=== PATIENT | female | born 1945 | race Asian ===

== ENCOUNTER 2016-12-13 17:16 | Inpatient (IN) | payer OTHER ==
[2016-12-13] VITALS (11 sets, daily range): BP systolic 69–169; BP diastolic 45–84; PULSE 59–143; RESP 18–28; TEMP 98.5–101.5; O2SAT 87–98
[~2016-12-13] VITALS: Ht 152.4 cm; Wt 68.0 kg
[~2016-12-13 17:16] MED LIST: DIGO0.12 PO; ENOX60P SQ; HYDR12.56 PO; METO25 PO; PROT40TA PO; WARF2TAB PO
--- NOTE | 2016-12-13 17:38 | PD ---
HPI . coughing,fever, chills Chief Complaint: Cold / Flu Symptoms Time Seen by Provider: 17:38 Travel History International Travel<30 days: No Contact w/Intl Traveler<30days: No Traveled to known affect area: No History of Present Illness HPI 71-year-old [place] female with history of A. fib on warfarin, history of mitral valve replacement, pacemaker here with complaints of coughing, fever and chills. Patient was seen last Sunday in [place] and started on Tamiflu for influenza. She was around someone who was infected. She has been taking the medications and has continued to experience fever, chills and coughing. Patient is a very poor historian and her son has provided most of the information. He says he brought his mom in because she is not getting better. She is continuing to experience fever and chills. This is what prompted him to come to the ED. While examining the patient, she started having bouts of coughing and was hacking up blood tinged sputum. Her vital signs were abnormal , her temperature was 101.1. She was hypoxic with in O2 sat of 89%, and tachycardic. She was given 2 L via nasal cannula and is now satting at 96%. PFSH Past Medical History Hx Anticoagulant Therapy: Yes Cardiovascular Problems: Yes High Cholesterol: Yes Hypertension: Yes Tetanus Vaccination: Unknown Past Surgical History Cardiac Surgery: Yes (PACEMAKER AUG 2014; MITRAL VALVE REPLACEMENT) Social History Alcohol Use: No Tobacco Use: No Substance Use: No Allergies-Medications (Allergen,Severity, Reaction): Coded Allergies: Penicillin (Unverified Allergy, Severe, Rash, 12/13/16) Reported Meds & Prescriptions Reported Meds & Active Scripts Active Reported Warfarin 4 Mg Tab 4 Mg PO MOFR @ HS Warfarin 2 Mg Tab 2 Mg PO SUTUWETHSA @[facility] Hydrochlorothiazide 12.5 Mg Tab 12.5 Mg PO DAILY Metoprolol Tartrate 25 Mg Tab 25 Mg PO BID Digoxin 0.125 Mg Tab 0.125 Mg PO DAILY Tamiflu (Oseltamivir Phosphate) 75 Mg Cap 75 Mg PO BID Review of Systems General / Constitutional: Positive: Fever, Chills Eyes: No: Visual changes HENT: No: Headaches Cardiovascular: No: Chest Pain or Discomfort Respiratory: Positive: Cough, Shortness of Breath Gastrointestinal: No: Abdominal Pain Genitourinary: No: Dysuria Musculoskeletal: No: Pain Skin: No Rash Neurologic: No: Weakness Psychiatric: No: Depression Endocrine: No: Polydipsia Hematologic/Lymphatic: No: Easy Bruising Physical Exam Narrative GENERAL: AAO x 3, on nasal cannula, has some difficulty breathing, SKIN: Warm and dry. No visible rashes or bruising. HEAD: Normocephalic and atraumatic. EYES: No scleral icterus. No injection or drainage. ENT: No nasal drainage noted. Mucous membranes pink. Airway patent. NECK: Supple, trachea midline. No JVD. CARDIOVASCULAR: A. fib RVR on auscultation heart rate approximately 136, monitor fluctuating between 112 and 144, 3/6 murmur on auscultation, 6/6 systolic click (heart valve) RESPIRATORY: Breath sounds significantly diminished bilaterally. Rhonchi and Rales scattered bilaterally GASTROINTESTINAL: Abdomen soft, non-tender, nondistended. EXTREMITIES: No cyanosis. Bilateral lower extremities with trace edema BACK: Nontender without obvious deformity. No CVA tenderness. PSYCH: AAO x 3, normal affect. Data Data Last Documented VS Vital Signs Date Time Temp Pulse Resp B/P Pulse Ox O2 Delivery O2 Flow Rate FiO2 12/13/16 18:10 92 Nasal Cannula 2 12/13/16 17:25 101.1 123 24 169/84 Orders Electrocardiogram (12/13/16 17:32) Complete Blood Count With Diff (12/13/16:32) Comprehensive Metabolic Panel (12/13/16 17:32) Prothrombin Time / Inr (Pt) (12/13/16:32) Act Partial Throm Time (Ptt) (12/13/16:32) Lactic Acid Sepsis Protocol (12/13/16:32) Magnesium (Mg) (12/13/16:32) Phosphorus (Po4) (12/13/16 17:32) Lipase (12/13/16:32) Ckmb (Isoenzyme) Profile (12/13/16:32) Troponin I (12/13/16:32) Urinalysis - C+S If Indicated (12/13/16:32) Blood Culture (12/13/16:32) Blood Glucose (12/13/16:32) Ecg Monitoring (12/13/16:32) Iv Access Insert/Monitor (3/15/17 17:32) Oximetry (12/13/16 17:32) Oxygen Administration (12/13/16 17:32) Diltiazem Inj (Cardizem Inj) (12/13/16 18:00) Chest, Single Ap (12/13/16 ) Digoxin (12/13/16 17:57) Acetaminophen (Tylenol) (12/13/16 18:00) Vancomycin Inj (Vancomycin Inj) (12/13/16 18:00) Aztreonam Inj (Azactam Inj) (12/13/16 18:00) Arterial Blood Gas (Abg) (12/13/16 ) Influenzae A/B Antigen (12/13/16 18:45) Diltiazem Inj (Cardizem Inj) (12/13/16 18:45) Admit Order (Ed Use Only) (12/13/16 ) Labs Laboratory Tests Test 12/13/16 12/13/16 17:45 18:15 White Blood Count 11.1 TH/MM3 Red Blood Count 4.24 MIL/MM3 Hemoglobin 13.1 GM/DL Hematocrit 39.8 % Mean Corpuscular Volume 93.9 FL Mean Corpuscular Hemoglobin 30.9 PG Mean Corpuscular Hemoglobin 33.0 % Concent Red Cell Distribution Width 13.8 % Platelet Count 193 TH/MM3 Mean Platelet Volume 8.5 FL Neutrophils (%) (Auto) 86.6 % Lymphocytes (%) (Auto) 6.2 % Monocytes (%) (Auto) 6.7 % Eosinophils (%) (Auto) 0.2 % Basophils (%) (Auto) 0.3 % Neutrophils # (Auto) 9.6 TH/MM3 Lymphocytes # (Auto) 0.7 TH/MM3 Monocytes # (Auto) 0.7 TH/MM3 Eosinophils # (Auto) 0.0 TH/MM3 Basophils # (Auto) 0.0 TH/MM3 CBC Comment DIFF FINAL Differential Comment Prothrombin Time 35.6 SEC Prothromb Time International 3.1 RATIO Ratio Activated Partial 33.0 SEC Thromboplast Time Sodium Level 140 MEQ/L Potassium Level 4.1 MEQ/L Chloride Level 103 MEQ/L Carbon Dioxide Level 25.0 MEQ/L Anion Gap 12 MEQ/L Blood Urea Nitrogen 10 MG/DL Creatinine 0.69 MG/DL Estimat Glomerular Filtration 84 ML/MIN Rate Random Glucose 107 MG/DL Calcium Level 8.8 MG/DL Phosphorus Level 2.1 MG/DL Magnesium Level 1.5 MG/DL Total Bilirubin 0.9 MG/DL Aspartate Amino Transf 38 U/L (AST/SGOT) Alanine Aminotransferase 25 U/L (ALT/SGPT) Alkaline Phosphatase 79 U/L Total Creatine Kinase 100 U/L Troponin I 0.02 NG/ML Total Protein 8.2 GM/DL Albumin 3.9 GM/DL Lipase 201 U/L Blood Gas Puncture Site RT RADIAL Blood Gas Patient Temperature 98.6 Blood Gas HCO3 27 mmol/L Blood Gas Base Excess 3.7 mmol/L Blood Gas Oxygen Saturation 88 % Arterial Blood pH 7.51 Arterial Blood Partial 34 mmHg Pressure CO2 Arterial Blood Partial 52 mmHG Pressure O2 Arterial Blood Oxygen Content 16.2 Vol % Arterial Blood 1.4 % Carboxyhemoglobin Arterial Blood Methemoglobin 0.6 % Blood Gas Hemoglobin 13.2 G/DL Oxygen Delivery Device NASAL CANNULA Blood Gas Liter Flow 3 L/M MDM Medical Decision Making Medical Screen Exam Complete: Yes Emergency Medical Condition: Yes Medical Record Reviewed: Yes Differential Diagnosis CHF, PNA, PE, Narrative Course 71-year-old [place] female with history of A. fib on warfarin, history of mitral valve replacement, pacemaker here with complaints of coughing, fever and chills. Patient was seen last Sunday in [place] and started on Tamiflu for influenza. She was around someone who was infected. She has been taking the medications and has continued to experience fever, chills and coughing. Patient is a very poor historian and her son has provided most of the information. He says he brought his mom in because she is not getting better. She is continuing to experience fever and chills. This is what prompted him to come to the ED. While examining the patient, she started having bouts of coughing and was hacking up blood tinged sputum. Her vital signs were abnormal , her temperature was 101.1. She was hypoxic with in O2 sat of 89%. She was given 2 L via nasal cannula and is now satting at 96%. Patient seen and examined. Case discussed with Dr. Beck. Workup in progress. Differentials include CHF, PNA, PE Patient given cardizem in ED due to EKG with afib RVR and HTN, afterwards she was feeling better. She was started on antibiotics: Tylenol was given for fever. She will require admission. We have discussed with bilingual sales consultant and medicine. They have both seen the patient and accepted her. Diagnosis Primary Impression: Atrial fibrillation with RVR Additional Impressions: Pneumonia Qualified Code: J18.9 - Pneumonia due to infectious organism, unspecified laterality, unspecified part of lung CHF (congestive heart failure) Qualified Code: I50.9 - Congestive heart failure, unspecified congestive heart failure chronicity, unspecified congestive heart failure type Admitting Information Admitting Physician Requests: Admit Condition: Stable Melissa Gray Dec 13, 2016 17:38
[2016-12-13] MEDS ORDERED: OSEL75 PO (17:53)
[2016-12-13] MEDS ORDERED: DIGO0.12 PO (17:53)
[2016-12-13] MEDS ORDERED: METO25TA3 PO (17:53)
[2016-12-13] MEDS ORDERED: WARF4TAB51 PO (17:54)
[2016-12-13] MEDS ORDERED: WARF-20 PO (17:54)
[2016-12-13] MEDS ORDERED: HYDR12.56 PO (17:54)
[2016-12-13] MEDS ORDERED: DILTIAZEM HCL 25 MG/5 ML VIAL IV PUSH ONE (18:00)
[2016-12-13] MEDS ORDERED: VANCOMYCIN INJ 1,000 MG in SODIUM CHLOR 0.9% 250 ML INJ 250 ML IV ONE (18:00)
[2016-12-13] MEDS ORDERED: ACETAMINOPHEN 325 MG TAB PO ONE (18:00)
[2016-12-13] MEDS ORDERED: AZTREONAM INJ 2,000 MG in SODIUM CHLORIDE 0.9% INJ 100 ML IV ONE (18:00)
[2016-12-13 18:05] LABS: AUTOMATED NEUTROPHIL # 9.6 TH/MM3 (1.8-7.7); BASOPHIL % 0.3 % (0.0-2.0); EOSINOPHIL % 0.2 % (0.0-4.0); HEMATOCRIT 39.8 % (35.0-46.0); HEMO FLAGS DIFF FINAL; LYMPH % 6.2 % (9.0-44.0); LYMPHOCYTE # 0.7 TH/MM3 (1.0-4.8); MEAN CELL VOLUME 93.9 FL (80.0-100.0); MEAN CORPUSCULAR HEMOGLOBIN 30.9 PG (27.0-34.0); MONO % 6.7 % (0.0-8.0); NEUT % 86.6 % (16.0-70.0); PLATELET COUNT 193 TH/MM3 (150-450); RED BLOOD COUNT 4.24 MIL/MM3 (4.00-5.30); RED CELL DISTRIBUTION WIDTH 13.8 % (11.6-17.2); WHITE BLOOD COUNT 11.1 TH/MM3 (4.0-11.0)
--- NOTE | 2016-12-13 18:07 | PD ---
Data Data Last Documented VS Vital Signs Date Time Temp Pulse Resp B/P Pulse Ox O2 Delivery O2 Flow Rate FiO2 12/13/16 18:10 92 Nasal Cannula 2 12/13/16 17:25 101.1 123 24 169/84 Orders Electrocardiogram (12/13/16 17:32) Complete Blood Count With Diff (12/13/16 17:32) Comprehensive Metabolic Panel (12/13/16 17:32) Prothrombin Time / Inr (Pt) (12/13/16 17:32) Act Partial Throm Time (Ptt) (12/13/16 17:32) Lactic Acid Sepsis Protocol (12/13/16 17:32) Magnesium (Mg) (12/13/16:32) Phosphorus (Po4) (12/13/16:32) Lipase (12/13/16:32) Ckmb (Isoenzyme) Profile (12/13/16 17:32) Troponin I (12/13/16 17:32) Urinalysis - C+S If Indicated (12/13/16 17:32) Blood Culture (12/13/16 17:32) Blood Glucose (12/13/16 17:32) Ecg Monitoring (12/13/16 17:32) Iv Access Insert/Monitor (12/13/16 17:32) Oximetry (12/13/16 17:32) Oxygen Administration (12/13/16 17:32) Diltiazem Inj (Cardizem Inj) (12/13/16 18:00) Chest, Single Ap (12/13/16 ) Digoxin (12/13/16 17:57) Acetaminophen (Tylenol) (12/13/16 18:00) Vancomycin Inj (Vancomycin Inj) (12/13/16 18:00) Aztreonam Inj (Azactam Inj) (12/13/16 18:00) Arterial Blood Gas (Abg) (12/13/16 ) Influenzae A/B Antigen (12/13/16 18:45) Diltiazem Inj (Cardizem Inj) (12/13/16 18:45) Admit Order (Ed Use Only) (12/13/16 ) Labs Laboratory Tests Test 12/13/16 12/13/16 17:45 18:15 White Blood Count 11.1 TH/MM3 Red Blood Count 4.24 MIL/MM3 Hemoglobin 13.1 GM/DL Hematocrit 39.8 % Mean Corpuscular Volume 93.9 FL Mean Corpuscular Hemoglobin 30.9 PG Mean Corpuscular Hemoglobin 33.0 % Concent Red Cell Distribution Width 13.8 % Platelet Count 193 TH/MM3 Mean Platelet Volume 8.5 FL Neutrophils (%) (Auto) 86.6 % Lymphocytes (%) (Auto) 6.2 % Monocytes (%) (Auto) 6.7 % Eosinophils (%) (Auto) 0.2 % Basophils (%) (Auto) 0.3 % Neutrophils # (Auto) 9.6 TH/MM3 Lymphocytes # (Auto) 0.7 TH/MM3 Monocytes # (Auto) 0.7 TH/MM3 Eosinophils # (Auto) 0.0 TH/MM3 Basophils # (Auto) 0.0 TH/MM3 CBC Comment DIFF FINAL Differential Comment Prothrombin Time 35.6 SEC Prothromb Time International 3.1 RATIO Ratio Activated Partial 33.0 SEC Thromboplast Time Sodium Level 140 MEQ/L Potassium Level 4.1 MEQ/L Chloride Level 103 MEQ/L Carbon Dioxide Level 25.0 MEQ/L Anion Gap 12 MEQ/L Blood Urea Nitrogen 10 MG/DL Creatinine 0.69 MG/DL Estimat Glomerular Filtration 84 ML/MIN Rate Random Glucose 107 MG/DL Calcium Level 8.8 MG/DL Phosphorus Level 2.1 MG/DL Magnesium Level 1.5 MG/DL Total Bilirubin 0.9 MG/DL Aspartate Amino Transf 38 U/L (AST/SGOT) Alanine Aminotransferase 25 U/L (ALT/SGPT) Alkaline Phosphatase 79 U/L Total Creatine Kinase 100 U/L Troponin I 0.02 NG/ML Total Protein 8.2 GM/DL Albumin 3.9 GM/DL Lipase 201 U/L Blood Gas Puncture Site RT RADIAL Blood Gas Patient Temperature 98.6 Blood Gas HCO3 27 mmol/L Blood Gas Base Excess 3.7 mmol/L Blood Gas Oxygen Saturation 88 % Arterial Blood pH 7.51 Arterial Blood Partial 34 mmHg Pressure CO2 Arterial Blood Partial 52 mmHG Pressure O2 Arterial Blood Oxygen Content 16.2 Vol % Arterial Blood 1.4 % Carboxyhemoglobin Arterial Blood Methemoglobin 0.6 % Blood Gas Hemoglobin 13.2 G/DL Oxygen Delivery Device NASAL CANNULA Blood Gas Liter Flow 3 L/M MDM Supervised Visit with MAYRA: Yes Narrative Course I, Dr. Beck, have reviewed the advance practice practitioner's documentation and am in agreement, met with the patient face to face, made the diagnosis, and the medical decision making was done by me. *My assessment and Findings: GENERAL: Well-developed well-nourished, tachycardic tachypneic SKIN: Warm and dry. HEAD: Atraumatic. Normocephalic. EYES: Pupils equal and round. No scleral icterus. No injection or drainage. ENT: No nasal bleeding or discharge. Mucous membranes pink and moist. NECK: Trachea midline. No JVD. CARDIOVASCULAR: Irregularly regular and tachycardic.. No murmur appreciated. 2 + bilaterally equal pulses in all 4 extremity's. RESPIRATORY: No accessory muscle use. Bibasilar rales. Breath sounds equal bilaterally. Limited auscultation secondary to patient effort. GASTROINTESTINAL: Abdomen soft, non-tender, nondistended. Hepatic and splenic margins not palpable. MUSCULOSKELETAL: No obvious deformities. No clubbing. No cyanosis. No edema. NEUROLOGICAL: Awake and alert. No obvious cranial nerve deficits. Motor grossly within normal limits. Normal speech. PSYCHIATRIC: Appropriate mood and affect; insight and judgment normal. This is a 71-year-old female presents with cough and congestion for the past week. Was initially diagnosed with the flu. Has finished her course of Tamiflu. She is febrile tachycardic tachypneic and hypoxic on arrival. Shortly after arrival patient began coughing up pink frothy sputum. Very tachycardic, initial evaluation 120s up to 180s in nature for ablation with RVR , blood pressure 180 systolic.She was given Cardizem as her blood pressure is elevated to control heart rate. She is starting to feel somewhat better. On oxygen she is saturating well (96%). Patient's chest x-ray reveals patchy pulmonary infiltrates versus edema. Patient doing marginally better with heart rate control, blood pressure remains within acceptable ranges (130 systolic). Patient will be given vancomycin and Azactam. Guarding on a Cardizem drip as she has required 2 boluses of Cardizem now. She was discussed with Dr. De Leon for admission to the ICU. Critical Care Narrative Aggregate critical care time was 35 minutes. Time to perform other separately billable procedures was not included in the critical care time. My time did not include minutes spent treating any other patients simultaneously or on activities that did not directly contribute to the patient's treatment. The services I provided to this patient were to treat and/or prevent clinically significant deterioration that could result in: , disability, heart failure, organ failure. I provided critical care services requiring my management, as noted below: Chart data review, documentation time, medication orders and management, vital sign assessments/reviewing monitor data, ordering and reviewing lab tests, ordering and interpreting/reviewing x-rays and diagnostic studies, care of the patient and discussion of the patient with the admitting physicians. Diagnosis Primary Impression: Acute respiratory failure with hypoxia Additional Impressions: Sepsis Qualified Code: A41.9 - Sepsis, due to unspecified organism Pneumonia Qualified Code: J18.9 - Pneumonia due to infectious organism, unspecified laterality, unspecified part of lung Pulmonary edema Qualified Code: J81.0 - Acute pulmonary edema Atrial fibrillation with RVR Admitting Information Admitting Physician Requests: Admit Condition: Devante Meza MD Dec 13, 2016 18:07
[2016-12-13 18:20] LABS: BLOOD GAS BASE EXCESS 3.7 mmol/L (-2-2); BLOOD GAS CARBOXYHEMOGLOBIN 1.4 % (0-4); BLOOD GAS HCO3 27 mmol/L (22-26); BLOOD GAS METHEMOGLOBIN 0.6 % (0-2); BLOOD GAS O2 HGB SATURATION 88 % (90-100); BLOOD GAS OXYGEN CONTENT 16.2 Vol % (12.0-20.0); BLOOD GAS PCO2 34 mmHg (38-42); BLOOD GAS PO2 52 mmHG (61-120); BLOOD GAS TOTAL HGB 13.2 G/DL (12.0-16.0); CRITICAL VALUE YES; DRAW SITE RT RADIAL; LITER FLOW 3 L/M; NUMBER OF ARTERIAL PUNCTURES 1; OXYGEN DEVICE NASAL CANNULA; STAT YES; TEMP CORR TO 98.6; ULNAR PULSE PRESENT
--- NOTE | 2016-12-13 18:21 | RADRPT ---
EXAM DATE/TIME: 12/13/2016 18:05 [facility] COMPARISON: CHEST SINGLE AP, December 19, 2015, 15:05. INDICATIONS : Short of breath. MEDICAL HISTORY : None. SURGICAL HISTORY : CABG. Pacemaker. ENCOUNTER: Initial ACUITY: 1 day PAIN SCORE: 0/10 LOCATION: Bilateral chest FINDINGS: Median sternotomy wires are noted and a single lead pacer device from a right subclavian transvenous approach noted. Old left subclavian approach transvenous pacer lead identified. Cardiac valvular pros thesis is noted. There is blunting of the right lateral costophrenic angle suspect for a small right effusion. Mild streaky basilar airspace disease is suspected. CONCLUSION: Small right effusion and mild basilar streaky infiltrate. Stanford Hardy MD on December 13, 2016 at 18:18 Board Certified Radiologist. This report was verified electronically.
[2016-12-13 18:31] LABS: ALT (GPT) 25 U/L (10-53); ANION GAP 12 MEQ/L (5-15); AST (GOT) 38 U/L (15-37); BLOOD UREA NITROGEN 10 MG/DL (7-18); CHLORIDE 103 MEQ/L (98-107); GLOMERULAR FILTRATION RATE 84 ML/MIN (>89); INTERNATIONAL NORMALIZED RATIO 3.1 RATIO; MAGNESIUM 1.5 MG/DL (1.5-2.5); POTASSIUM 4.1 MEQ/L (3.5-5.1); PROTHROMBIN TIME - PATIENT 35.6 SEC (9.8-11.6); SODIUM (NA) 140 MEQ/L (136-145)
[2016-12-13 18:34] LABS: ALKALINE PHOSPHATASE 79 U/L (45-117); TOTAL BILIRUBIN ADULT 0.9 MG/DL (0.2-1.0)
[2016-12-13 18:39] LABS: CREATINE KINASE 100 U/L (26-192)
[2016-12-13] MEDS ORDERED: DILTIAZEM INJ 125 MG in SODIUM CHLORIDE 0.9% INJ 100 ML IV SCH (18:45)
[2016-12-13] MEDS ORDERED: POTASSIUM PHOSPHATE MONOBASIC 500 MG TAB PO PRN (19:15)
[2016-12-13] MEDS ORDERED: POTASSIUM CHLOR 40 MEQ PREMIX 100 ML IV PRN ×2 (19:15)
[2016-12-13] MEDS ORDERED: MAGNESIUM SULFATE INJ 4 GM in SODIUM CHLORIDE 0.9% INJ 92 ML IV PRN (19:15)
[2016-12-13] MEDS ORDERED: MAGNESIUM SULFATE INJ 2 GM in SODIUM CHLORIDE 0.9% INJ 96 ML IV PRN (19:15)
[2016-12-13] MEDS ORDERED: POTASSIUM PHOSPHATE MONOBASIC 500 MG TAB PO/TUBE PRN (19:15)
[2016-12-13] MEDS ORDERED: POTASSIUM CHLOR 20 MEQ PREMIX 100 ML IV PRN ×2 (19:15)
[2016-12-13] MEDS ORDERED: MAGNESIUM OXIDE 400 MG TAB PO PRN (19:15)
[2016-12-13] MEDS ORDERED: POTASSIUM PHOSPHATE INJ 30 MMOL in SODIUM CHLOR 0.9% 250 ML INJ 250 ML IV PRN (19:15)
[2016-12-13] MEDS ORDERED: MISCELLANEOUS NURSING INFORMATION XX SCH (19:45)
[2016-12-13] MEDS ORDERED: ONDANSETRON HCL 4 MG/2 ML VIAL IV PRN (19:45)
[2016-12-13] MEDS ORDERED: Vancomycin Consult Pharmacy 1 EA OTHER SCH (19:45)
[2016-12-13] MEDS ORDERED: SODIUM CHLORIDE 0.9% FLUSH 5 ML FLUSH IV FLUSH PRN (19:45)
[2016-12-13] MEDS ORDERED: CHLORHEXIDINE GLUCONATE 2 % 1 PACK (2 CLOTHS) TOP PRN (19:45)
[2016-12-13] MEDS ORDERED: RESP: ALBUTEROL 2.5 MG/3 ML NEB (PRN) INH (19:45)
[2016-12-13] MEDS ORDERED: ACETAMINOPHEN 325 MG TAB PO PRN (19:45)
--- NOTE | 2016-12-13 19:52 | HHI.HP ---
HPI Service Critical Care Medicine Primary Care Physician Unknown Admission Diagnosis Hypoxic Respiratory Failure, Sepsis, PNA, Afib RVR Diagnosis: Travel History International Travel<30 Days: No Contact w/Intl Traveler <30 Da: No Traveled to Known Affected Are: No History of Present Illness 71-year-old Slov[place] female with past medical history of mechanical mitral valve replacement, paroxysmal atrial fibrillation on chronic anticoagulation with warfarin, hypertension, who presents to [facility] with shortness of breath, cough and fever. She states that on Sunday12/08/16 she developed cough and sore throat and was seen by her primary care physician and started on Tamiflu for presumed influenza. She had been around a grandchild who had tested positive for influenza and had been ill with similar symptoms. She states that she initially felt some improvement after taking Tamiflu, however over the last 24 hours she states that she has felt short of breath and has had cough productive of white and blood-tinged sputum. She states her fever had resolved for a few days but upon presentation she has a temp of 101.1. She has completed a 5 day course of Tamiflu. She presented in atrial fibrillation with RVR with rate in the 140s. She was administered Cardizem 13 mg bolus followed by 20 mg IV bolus and is going to be started on a Cardizem drip per ED physician. She remains in A. fib in the 110s. She is on metoprolol and digitoxin for rate control at home. She took her digoxin and metoprolol this morning. She has not had her evening dose of metoprolol. She has not taken HCTZ for couple of days because she had run out. Digoxin level is pending. White blood cell count is 11. Chest x-ray demonstrates small bibasilar infiltrates and right pleural effusion. She was started on aztreonam and vancomycin in the emergency department. She denies chest pain. She has some mild pedal edema but she states this is chronic for her. Her INR is 3.1. Review of Systems Constitutional: COMPLAINS OF: Fever Respiratory: COMPLAINS OF: Sputum production, Shortness of breath Cardiovascular: COMPLAINS OF: Palpitations Past Family Social History Allergies: Coded Allergies: Penicillin (Unverified Allergy, Severe, Rash, 12/13/16) Past Medical History Hypertension Rheumatic heart disease now status post mechanical mitral valve replacement in 2003 Atrial fibrillation Past Surgical History Mechanical mitral valve replacement in 2009 (per patient, other records state 2003) Pacemaker placement Reported Medications Warfarin 2 mg by mouth daily except Sunday and Sunday when she takes 4 mg by mouth daily She has completed a 5 day course of Tamiflu today Digoxin 0.25 mg by mouth daily Metoprolol 25 mg by mouth twice a day HCTZ 12.5 mg by mouth daily Family History She denies family history of heart disease Social History She is a lifetime nonsmoker. Denies use of alcohol or illicit drug use She moved here from the [facility] in 2009 Physical Exam Vital Signs Vital Signs Date Time Temp Pulse Resp B/P Pulse Ox O2 Delivery O2 Flow Rate FiO2 12/13/16 19:00 101.5 143 27 145/63 94 Nasal Cannula 3 12/13/16 18:10 92 Nasal Cannula 2 12/13/16 17:25 101.1 123 24 169/84 89 Physical Exam Temp 101.5 Pulse 108 blood pressure 152/105 sats 92% on 3 L nasal cannula GENERAL: Well-nourished, well-developed patient who is sitting up in the ED [facility] on 3 L nasal cannula, complaining of thirst. SKIN: Warm and dry, well perfused. HEAD: Atraumatic. Normocephalic. EYES: Pupils equal and round. No scleral icterus. No injection or drainage. ENT: No nasal bleeding or discharge. Mucous membranes pink. NECK: Trachea midline. No JVD appreciated. CARDIOVASCULAR: Irregularly irregular with rate of 105-110. Valve click noted. RESPIRATORY: Tachypneic without accessory muscle use. Speaking in complete sentences but also moaning and complaining of thirst. Coarse breath sounds in the lower third of lung antonio with rhonchi. No wheezes. GASTROINTESTINAL: Abdomen soft, non-tender, nondistended. Bowel sounds present. MUSCULOSKELETAL: Extremities without clubbing, cyanosis. Mild 1+ pedal edema ( patient states is chronic) NEUROLOGICAL: Awake and alert. No obvious cranial nerve deficits. Motor grossly within normal limits. No focal deficit noted Normal speech. Oriented 4 Laboratory Laboratory Tests Test 12/13/16 12/13/16 17:45 18:15 White Blood Count 11.1 Red Blood Count 4.24 Hemoglobin 13.1 Hematocrit 39.8 Mean Corpuscular Volume 93.9 Mean Corpuscular Hemoglobin 30.9 Mean Corpuscular Hemoglobin 33.0 Concent Red Cell Distribution Width 13.8 Platelet Count 193 Mean Platelet Volume 8.5 Neutrophils (%) (Auto) 86.6 Lymphocytes (%) (Auto) 6.2 Monocytes (%) (Auto) 6.7 Eosinophils (%) (Auto) 0.2 Basophils (%) (Auto) 0.3 Neutrophils # (Auto) 9.6 Lymphocytes # (Auto) 0.7 Monocytes # (Auto) 0.7 Eosinophils # (Auto) 0.0 Basophils # (Auto) 0.0 CBC Comment DIFF FINAL Differential Comment Prothrombin Time 35.6 Prothromb Time International 3.1 Ratio Activated Partial 33.0 Thromboplast Time Sodium Level 140 Potassium Level 4.1 Chloride Level 103 Carbon Dioxide Level 25.0 Anion Gap 12 Blood Urea Nitrogen 10 Creatinine 0.69 Estimat Glomerular Filtration 84 Rate Random Glucose 107 Calcium Level 8.8 Phosphorus Level 2.1 Magnesium Level 1.5 Total Bilirubin 0.9 Aspartate Amino Transf 38 (AST/SGOT) Alanine Aminotransferase 25 (ALT/SGPT) Alkaline Phosphatase 79 Total Creatine Kinase 100 Troponin I 0.02 Total Protein 8.2 Albumin 3.9 Lipase 201 Blood Gas Puncture Site RT RADIAL Blood Gas Patient Temperature 98.6 Blood Gas HCO3 27 Blood Gas Base Excess 3.7 Blood Gas Oxygen Saturation 88 Arterial Blood pH 7.51 Arterial Blood Partial 34 Pressure CO2 Arterial Blood Partial 52 Pressure O2 Arterial Blood Oxygen Content 16.2 Arterial Blood 1.4 Carboxyhemoglobin Arterial Blood Methemoglobin 0.6 Blood Gas Hemoglobin 13.2 Oxygen Delivery Device NASAL CANNULA Blood Gas Liter Flow 3 Date/Time Procedure Status Source Growth 12/13/16 17:55 Aerobic Blood Culture Received Blood Peripheral Pending 12/13/16 17:55 Anaerobic Blood Culture Received Blood Peripheral Pending Result Diagram: 12/13/16 1745 12/13/16 1745 Assessment and Plan Assessment and Plan NEURO: Acetaminophen as needed for pain 1-3/fever Lortab as needed for pain 4-10 RESP: Hypoxia Post influenza pneumonia Completed course of Tamiflu. DuoNeb every 6 hours. Albuterol every 2 hours as needed. Nasal cannula wean as tolerated. Chest x-ray with bibasilar opacities. We'll check BNP and echo. CV: Atrial fibrillation with RVR line history of mechanical mitral valve replacement Pacemaker in place HTN Follow-up digoxin level and likely resume home digoxin. Continue metoprolol 25 mg by mouth twice a day Cardizem drip for rate control. Anticoagulation with warfarin as per below Hold HCTZ for now EKG with atrial fibrillation. There is some ST depression which may be rate related. Troponin is negative. Will follow-up EKG and troponin. She denies Chest pain. Check BNP and echo Cardiology consult she is followed by GI: Clear liquid diet FEN/RENAL: Monitor intake and output every 4 hours. Replace like like as indicated. Magnesium sulfate 1 g IV now. ID: Postinfluenzal community acquired pneumonia Follow-up blood cultures. Check UA and culture. Check Legionella and pneumococcal antigens. Aztreonam 2 g IV every 8 hours. Continue vancomycin with pharmacy dosing. Azithromycin 500 mg IV daily. HEME: Chronic anticoagulation with warfarin for mechanical mitral valve and atrial fibrillation Continue warfarin with pharmacy consult for dosing Target INR 3 ENDO: Glucose normal. Check TSH PROPH: Protonix 40 mg IV daily for stress ulcer prophylaxis. INR is therapeutic also provides DVT prophylaxis ACCESS: Ultrasound-guided peripheral IV placed in ED. R IJ CVL placed 12/14 #1. Followup: Patient had refractory RVR with rate in 140s despite cardizem 15 mg/ hr. SBP was 130s to 140s. Gave home dose of metoprolol 25 mg po, was awaiting results of digoxin level. Then patient's breathing was becoming more labored and tachypneic. Sounded wet on lung exam, requiring NR. Ordered Lasix 40 mg IV. Still with A fib RVR poorly controlled so gave amiodarone 150 mg IV bolus over one hour and discontinued cardizem drip. Heart rate decreased to ~58, V paced rhythm and she became hypotensive with SBP 60/40s. Placed R IJ CVL and initiated levophed to maintain MAP 65. Monitor UOP closely as marker of perfusion. Patient and her son updated at bedside. Cancel hospitalist consult, CCM will continue to follow. CCT 60 minutes exclusive of separately billable procedures. Perri Garcia MD Dec 13, 2016 19:52
[2016-12-13] MEDS ORDERED: ACETAMINOPHEN/HYDROcodone 325 MG/5 MG TAB PO PRN (20:00)
[2016-12-13] MEDS: AZITHROMYCIN INJ 500 MG in SODIUM CHLOR 0.9% 250 ML INJ 250 ML IV SCH (20:00)
[2016-12-13] MEDS ORDERED: MAGNESIUM SULFATE 1 GM PREMIX 100 ML IV ONE (20:15)
[2016-12-13] MEDS: RESP: ALBUTEROL 2.5 MG/IPRATROPIUM 0.5 MG NEB (SCH) INH (21:16)
[2016-12-13] MEDS: SODIUM CHLORIDE 0.9% FLUSH 5 ML FLUSH IV FLUSH SCH (21:22)
[2016-12-13] MEDS: METOPROLOL TARTRATE 25 MG TAB PO SCH (21:28)
[2016-12-13 21:50] LABS: BACTERIA, URINE OCC /hpf; BLOOD, URINE MOD (NEG); GLUCOSE,URINE NEG (NEG); KETONE, URINE NEG (NEG); MUCUS URINE FEW /lpf (OCC); NITRITE,URINE NEG (NEG); SQUAMOUS EPITHELIAL CELL URINE 2 /hpf (0-5); URINE COLOR YELLOW (YELLW/STRAW)
[2016-12-13 21:51] LABS: COMMENT (UR) CATH-CULTURE IND; CULTURE IF INDICATED CATH CULTURE IND
[2016-12-13] MEDS ORDERED: NOREPINEPHRINE 4 MG/4 ML AMP ONE (22:52)
[2016-12-13] MEDS ORDERED: AMIODARONE INJ 900 MG in D5W 500 ML (EXCEL BAG) 482 ML IV SCH (23:00)
[2016-12-13] MEDS ORDERED: TERBUTALINE INJ 1 MG/ML AMP SQ PRN (23:00)
[2016-12-13] MEDS ORDERED: AMIODARONE INJ 150 MG in DEXTROSE 5% IN WATER 100ML INJ 97 ML IV ONE ×2 (23:00)
[2016-12-13] MEDS ORDERED: AMIODARONE INJ 450 MG in D5W (EXCEL BAG) 241 ML IV SCH (23:00)
[2016-12-13] MEDS ORDERED: FUROSEMIDE 40 MG/4 ML VIAL IV PUSH ONE (23:00)
--- NOTE | 2016-12-13 23:36 | PD.PROCEDR ---
Procedure Note Procedure DATE: 12/13/16 CENTRAL LINE PLACEMENT: Right internal jugular vein. Ultrasound-guided. Internal jugular site chosen as patient is coagulopathic. INDICATION: Central venous access CONSENT Informed consent for procedure was obtained from patient after discussion of risks, benefits, alternatives in detail. DESCRIPTION OF THE PROCEDURE The patient was placed in supine position, Trendelenburg. The skin was cleansed with Chloraprep 3. Additional barrier precautions included large sterile drape, sterile gloves, sterile gown, face mask, and hat. 1 % lidocaine was used for local anesthesia. Under direct ultrasound guidance and on second attempt, the vein was accessed with an introducer needle. The guide wire was advanced and the tract was dilated. Using Seldinger technique a 7 Lithuanian 20 cm antimicrobial coated triple-lumen catheter was advanced to a depth of 18 centimeters. The guide wire was removed. All ports had good return of dark venous blood and flushed easily with saline. The central line was secured with 2.0 silk. A sterile dressing with antibiotic disc was applied. ESTIMATED BLOOD LOSS: Minimal COMPLICATIONS: No apparent complications. STAT chest x-ray is pending Perri Garcia MD Dec 13, 2016 23:36
[2016-12-13] MEDS: NOREPINEPHRINE-DEXTROSE DRIP 250 ML IV SCH (23:51)
[2016-12-14] VITALS (16 sets, daily range): BP systolic 88–114; BP diastolic 51–71; PULSE 65–115; RESP 17–38; TEMP 98–101.7; O2SAT 95–99
--- NOTE | 2016-12-14 00:03 | RADRPT ---
EXAM DATE/TIME: 12/13/2016 23:38 [place] COMPARISON: CHEST SINGLE AP, December 13, 2016, 18:05. INDICATIONS : Right Internal Jugular central line placement. MEDICAL HISTORY : None. SURGICAL HISTORY : Pacemaker. CABG. ENCOUNTER: Subsequent ACUITY: 1 day PAIN SCORE: 0/10 LOCATION: Bilateral chest FINDINGS: Single AP view of the chest. Median sternotomy wires, cardiac pacemaker, and prosthetic cardiac valve again seen. Right IJ central venous catheter is now in place with the tip in the distal superior katie a cava. No evidence of pneumothorax. Cardiac silhouette is enlarged but unchanged. Patchy bilateral l ower lung zone opacity the is slightly increased. CONCLUSION: Right IJ central venous catheter in place with tip in the distal SVC. No evidence of pneumothorax. Sl ight increase in bilateral lower lung zone opacity. Leon Pastrana MD on December 13, 2016 at 23:56 Board Certified Radiologist. This report was verified electronically.
[2016-12-14 01:48] LABS: LACTIC ACID GHOST NOT REPORTABLE
[2016-12-14 02:53] LABS: AUTOMATED NEUTROPHIL # 13.7 TH/MM3 (1.8-7.7); BASOPHIL % 0.3 % (0.0-2.0); HEMATOCRIT 37.9 % (35.0-46.0); LYMPH % 5.4 % (9.0-44.0); LYMPHOCYTE # 0.9 TH/MM3 (1.0-4.8); MEAN CORPUSCULAR HEMOGLOBIN 30.7 PG (27.0-34.0); MONO % 8.5 % (0.0-8.0); NEUT % 85.8 % (16.0-70.0); PLATELET COUNT 197 TH/MM3 (150-450); RED BLOOD COUNT 4.07 MIL/MM3 (4.00-5.30); RED CELL DISTRIBUTION WIDTH 13.9 % (11.6-17.2)
[2016-12-14 02:55] LABS: HEMO FLAGS AUTO DIFF
[2016-12-14 03:02] LABS: INTERNATIONAL NORMALIZED RATIO 2.6 RATIO; PROTHROMBIN TIME - PATIENT 29.9 SEC (9.8-11.6)
[2016-12-14 03:19] LABS: BICARBONATE 28.9 MEQ/L (21.0-32.0); MAGNESIUM 1.8 MG/DL (1.5-2.5); POTASSIUM 3.7 MEQ/L (3.5-5.1)
[2016-12-14] MEDS: CHLORHEXIDINE GLUCONATE 2 % 1 PACK (2 CLOTHS) TOP SCH (03:28)
[2016-12-14] MEDS: NOREPINEPHRINE-DEXTROSE DRIP 250 ML IV SCH ×3 (03:28→23:52)
[2016-12-14] MEDS: AZTREONAM INJ 2,000 MG in SODIUM CHLORIDE 0.9% INJ 100 ML IV SCH ×3 (03:28→16:17)
[2016-12-14] MEDS: RESP: ALBUTEROL 2.5 MG/IPRATROPIUM 0.5 MG NEB (SCH) INH ×4 (03:55→21:09)
[2016-12-14 04:40] LABS: BANDS 25 % (0-6); METAMYELOCYTES 8 % (0-1); POLYS (SEG NEUTROPHILS) 48 % (16-70); SCAN/DIFF FINAL DIFF MANUAL; WBC DIFF SAMPLE 100
[2016-12-14 04:41] LABS: PLATELET ESTIMATE SMEAR NORMAL (NORMAL); PLATELET MORPHOLOGY NORMAL (NORMAL)
[2016-12-14] MEDS: METOPROLOL TARTRATE 25 MG TAB PO SCH ×2 (09:00→20:42)
[2016-12-14] MEDS: PANTOPRAZOLE SODIUM 40 MG VIAL IV SCH (09:01)
[2016-12-14] MEDS: DIGOXIN 0.125 MG TAB PO SCH (09:02)
[2016-12-14] MEDS: SODIUM CHLORIDE 0.9% FLUSH 5 ML FLUSH IV FLUSH SCH ×2 (09:02→20:42)
[2016-12-14] MEDS: VANCOMYCIN 1,000 MG/NS 250 ML IV SCH ×2 (11:22)
[2016-12-14 12:30] LABS: MAGNESIUM 1.8 MG/DL (1.5-2.5); POTASSIUM 3.3 MEQ/L (3.5-5.1)
--- NOTE | 2016-12-14 12:53 | EC ---
Study Study Date:12/14/2016 STUDY CONCLUSIONS SUMMARY - Left ventricle: The cavity size was normal. Wall thickness was increased increased in a pattern of mild to moderate LVH. Systolic function was normal. The estimated ejection fraction was in the range of 55% to 60%. Wall motion was normal; there were no regional wall motion abnormalities. - Aortic valve: A bicuspid morphology cannot be excluded; moderately thickened, severely calcified leaflets. Transvalvular velocity was increased. There was critical stenosis. Mild regurgitation. Valve area: 0.33cm^2(VTI). Valve area: 0.44cm^2 (Vmax). - Mitral valve: A mechanical prosthesis was present. Cannot exclude vegetation. - Tricuspid valve: Mild regurgitation. - Pulmonic valve: Mild regurgitation. - Pulmonary arteries: Systolic pressure was mildly to moderately increased. PA peak pressure: 50mm Hg (S). If LV function is below 40, please consider prescribing an ACEI or ARB or document rationale for non-use. PROCEDURE DATA STUDY STATUS: Elective. Procedure: Transthoracic echocardiography. Image quality was good. Scanning was performed from the parasternal, apical, and subcostal acoustic windows. Study completion: The patient tolerated the procedure well. Transthoracic echocardiography. M-mode, complete 2D, complete spectral Doppler, and color Doppler. Patient status: Inpatient. CARDIAC ANATOMY LEFT VENTRICLE: Not well visualized. The cavity size was normal. Wall thickness was increased increased in a pattern of mild to moderate LVH. Systolic function was normal. The estimated ejection fraction was in the range of 55% to 60%. Wall motion was normal; there were no regional wall motion abnormalities. AORTIC VALVE: Poorly visualized. A bicuspid morphology cannot be excluded; moderately thickened, severely calcified leaflets. Doppler: Transvalvular velocity was increased. There was critical stenosis. Mild regurgitation. Valve area: 0.33cm^2(VTI). Valve area: 0.44cm^2 (Vmax). Mean gradient: 51mm Hg (S). Peak gradient: 93mm Hg (S). AORTA: Aortic root: The aortic root was normal in size. MITRAL VALVE: Not well visualized. A mechanical prosthesis was present. Cannot exclude vegetation. Doppler: Transvalvular velocity was within the normal range. There was no evidence for stenosis. No regurgitation. Valve area by pressure half-time: 3.38cm^2. LEFT ATRIUM: The atrium was normal in size. RIGHT VENTRICLE: The cavity size was normal. Wall thickness was normal. PULMONIC VALVE: Doppler: Transvalvular velocity was within the normal range. There was no evidence for stenosis. Mild regurgitation. TRICUSPID VALVE: Structurally normal valve. Doppler: Transvalvular velocity was within the normal range. Mild regurgitation. PULMONARY ARTERY: Systolic pressure was mildly to moderately increased. RIGHT ATRIUM: The atrium was normal in size. PERICARDIUM: There was no pericardial effusion. SYSTEMIC VEINS: Inferior vena cava: The vessel was normal in size. BASIC MEASUREMENTS ADULT Normal Left ventricle LV internal dimension, ED, chordal level, *38.4 mm 43-52 PLAX LV internal dimension, ES, chordal level, 28 mm 23-38 PLAX Fractional shortening, chordal level, PLAX *27 % >29 LV posterior wall thickness, ED 11.3 mm IVS/LVPW ratio, ED *1.4 <1.3 Ventricular septum Septal thickness, ED 15.8 mm Aortic valve Leaflet separation *9 mm 15-26 Right ventricle RV internal dimension, ED, PLAX 25.7 mm 19-38 BASIC MEASUREMENTS ADULT Normal Aortic valve Leaflet separation *9 mm 15-26 Aorta Root diameter, ED 32 mm 20-37 Left atrium Anterior-posterior dimension, ES *44 mm 19-40 LA/aortic root ratio 1.38 DOPPLER MEASUREMENTS ADULT Normal Main pulmonary artery Pressure, S *50 mm Hg =30 Aortic valve Peak velocity, S 482 cm/s Mean velocity, S 320 cm/s VTI, S 93.4 cm Mean gradient, S 51 mm Hg Peak gradient, S 93 mm Hg Valve area, VTI 0.33 cm^2 Valve area, Vmax 0.44 cm^2 Mitral valve Pressure half-time 65 ms Valve area, pressure half-time 3.38 cm^2 Tricuspid valve Regurgitant peak velocity 318 cm/s Peak RV-RA gradient, S 40 mm Hg Maximal regurgitant velocity 318 cm/s Systemic veins Estimated CVP 10 mm Hg Right ventricle RV pressure, S *50 mm Hg <30 LEGEND: Mean values are shown as u=mean value. Asterisk (*) lugo values outside specified normal range. Prepared and signed by Fermín Davidson [id number]
--- NOTE | 2016-12-14 13:21 | HHI.CCPN ---
Subjective Remarks/Hospital Course 71-year-old Luxembour[place] female with past medical history of mechanical mitral valve replacement, paroxysmal atrial fibrillation on chronic anticoagulation with warfarin, hypertension, who presents to [facility] with shortness of breath, cough and fever. She states that on Sunday12/08/16 she developed cough and sore throat and was seen by her primary care physician and started on Tamiflu for presumed influenza. She had been around a grandchild who had tested positive for influenza and had been ill with similar symptoms. She states that she initially felt some improvement after taking Tamiflu, however over the last 24 hours she states that she has felt short of breath and has had cough productive of white and blood-tinged sputum. She states her fever had resolved for a few days but upon presentation she has a temp of 101.1. She has completed a 5 day course of Tamiflu. She presented in atrial fibrillation with RVR with rate in the 140s. She was administered Cardizem 13 mg bolus followed by 20 mg IV bolus and is going to be started on a Cardizem drip per ED physician. She remains in A. fib in the 110s. She is on metoprolol and digitoxin for rate control at home. She took her digoxin and metoprolol this morning. She has not had her evening dose of metoprolol. She has not taken HCTZ for couple of days because she had run out. Digoxin level is pending. White blood cell count is 11. Chest x-ray demonstrates small bibasilar infiltrates and right pleural effusion. She was started on aztreonam and vancomycin in the emergency department. She denies chest pain. She has some mild pedal edema but she states this is chronic for her. Her INR is 3.1. SUBJ 12/14: Lying on bed. Mild distress. Remains on Levophed 10 mcg/min. HR controlled remains in A. fib. Echo EF 55-60% critical with mean gradient 51 , peak gradient 91. Previous mitral valve surgery was in 2003 according to the patient Objective Vital Signs Date Time Temp Pulse Resp B/P Pulse Ox O2 Delivery O2 Flow Rate FiO2 12/14/16 12:00 90 12/14/16 12:00 105/71 12/14/16 12:00 98.0 25 98 12/14/16 09:32 Nasal Cannula 2.00 Result Diagram: 12/14/16 0241 12/14/16 1128 Other Results Microbiology Date/Time Procedure Status Source Growth 12/13/16 21:20 Legionella Antigen - Final Complete Urine Catheterized Urine PRESUMPTIVE NEGATIVE FOR LEGIONELLA P... 12/13/16 21:20 Streptococcus pneumoniae Antigen (M - Final Complete Urine Catheterized Urine PRESUMPTIVE NEGATIVE FOR STREPTOCOCCU... Laboratory Tests Test 12/13/16 18:15 Blood Gas Puncture Site RT RADIAL Blood Gas Patient Temperature 98.6 Blood Gas HCO3 27 mmol/L (22-26) Blood Gas Base Excess 3.7 mmol/L (-2-2) Blood Gas Oxygen Saturation 88 % (90-100) Arterial Blood pH 7.51 (7.380-7.420) Arterial Blood Partial 34 mmHg (38-42) Pressure CO2 Arterial Blood Partial 52 mmHG Pressure O2 (61-120) Arterial Blood Oxygen Content 16.2 Vol % (12.0-20.0) Arterial Blood 1.4 % (0-4) Carboxyhemoglobin Arterial Blood Methemoglobin 0.6 % (0-2) Blood Gas Hemoglobin 13.2 G/DL (12.0-16.0) Oxygen Delivery Device NASAL CANNULA Blood Gas Liter Flow 3 L/M Objective Remarks Temp max 101.7 Pulse 80s blood pressure 110/60 on Levophed sats 92% on nasal cannula GENERAL: Well-nourished, well-developed patient who is sitting up in the ED [place] on 3 L nasal cannula SKIN: Warm and dry, well perfused. HEAD: Atraumatic. Normocephalic. EYES: Pupils equal and round. No scleral icterus. No injection or drainage. ENT: No nasal bleeding or discharge. Mucous membranes pink. NECK: Trachea midline. No JVD appreciated. CARDIOVASCULAR: Irregularly irregular with rate of 105-110. Valve click noted. Systolic murmur heard in all areas RESPIRATORY: Tachypneic without accessory muscle use. Bilateral coarse rhonchi and wheezes GASTROINTESTINAL: Abdomen soft, non-tender, nondistended. Bowel sounds present. MUSCULOSKELETAL: Extremities without clubbing, cyanosis. Mild 1+ pedal edema NEUROLOGICAL: Awake and alert. No obvious cranial nerve deficits. Motor grossly within normal limits. No focal deficit noted Normal speech. Urinary Catheter: Yes Assessment to: Continue A/P Assessment and Plan NEURO: Acetaminophen as needed for pain 1-3/fever Lortab as needed for pain 4-10 RESP: Hypoxia Post influenza pneumonia Completed course of Tamiflu. DuoNeb every 6 hours. Albuterol every 2 hours as needed. Nasal cannula wean as tolerated. Chest x-ray with bibasilar opacities. Continue empiric antibiotics as below CV: Shock Atrial fibrillation with RVR Critical aortic stenosis (MG 51 PG 93) history of mechanical mitral valve replacement Pacemaker in place HTN Cardiology and cardiothoracic surgery consulted for critical aortic stenosis Continue Coumadin keep INR 2.5-3 Levophed to keep map above 65 Follow-up digoxin level and likely resume home digoxin. Continue metoprolol 25 mg by mouth twice a day Discontinue Cardizem and amiodarone infusions Hold HCTZ for now EKG with atrial fibrillation. BNP 160. 2-D echo shows normal ejection fraction mild LVH and critical aortic stenosis Cardiology consult she is followed by GI: Clear liquid diet FEN/RENAL: -Monitor intake and output every 4 hours. Replace lites as needed ID: Postinfluenzal community acquired pneumonia Follow-up blood cultures. F/U UA and culture. Legionella and pneumococcal antigens neg Aztreonam 2 g IV every 8 hours. Continue vancomycin with pharmacy dosing. Azithromycin 500 mg IV daily. HEME: Chronic anticoagulation with warfarin for mechanical mitral valve and atrial fibrillation Continue warfarin with pharmacy consult for dosing Target INR 2.5-3 ENDO: Glucose normal. PROPH: Protonix 40 mg IV daily for stress ulcer prophylaxis. INR is therapeutic also provides DVT prophylaxis ACCESS: Ultrasound-guided peripheral IV placed in ED. R IJ CVL placed 12/14 #1. CCT 32 min Gisell Machado MD Dec 14, 2016 13:21 Gisell Machado MD Dec 14, 2016 13:21
--- NOTE | 2016-12-14 13:56 | EKG ---
Date Performed: 12/13/2016 Time Performed: 20:45:06 PTAGE: 71 years EKG: UNCERTAIN IRREGULAR RHYTHM ELECTRONIC VENTRICULAR PACEMAKER -- CONTOUR ANALYSIS BASED ON IN TRINSIC RHYTHM POSSIBLE RIGHT VENTRICULAR CONDUCTION DELAY LEFT VENTRICULAR HYPERTROPHY AND ST-T MERCADO GE ABNORMAL ECG INTERPRETATION BASED ON A DEFAULT AGE OF 39 YEARS NO PREVIOUS TRACING DOCTOR: William Remy Interpretating Date/Time 12/14/2016 13:51:43
--- NOTE | 2016-12-14 14:00 | EKG ---
Date Performed: 12/13/2016 Time Performed: 17:43:14 PTAGE: 71 years EKG: ATRIAL FIBRILLATION WITH RAPID VENTRICULAR RESPONSE VOLTAGE CRITERIA FOR LVH ST DEVIATION A ND MODERATE T-WAVE ABNORMALITY, CONSIDER ANTEROLATERAL ISCHEMIA ST DEVIATION AND MODERATE T-WAVE ABNO RMALITY, CONSIDER INFERIOR ISCHEMIA ABNORMAL ECG PREVIOUS TRACING : 12/20/2015 06.07 DOCTOR: William Remy Interpretating Date/Time 12/14/2016 13:54:01
[2016-12-14] MEDS ORDERED: WARFARIN SOD 3 MG TAB PO SCH (16:00)
--- NOTE | 2016-12-14 16:23 | PD.CONS ---
HPI Service cardiology Consult Requested By hospital Reason for Consult aortic valve stenosis Primary Care Physician Unknown History of Present Illness admitted with very sob and chf no syncope on and off chest pains on and off edema chronic afib mitral valve replacement mechanical 2004 rheumatic heart disease Review of Systems Consitutional: COMPLAINS OF: Fatigue Past Family Social History Allergies: Coded Allergies: Penicillin (Unverified Allergy, Severe, Rash, 12/13/16) Past Medical History as above and h/p Past Surgical History mvr she said no cabg Reported Medications Reported Meds & Active Scripts Active Reported Warfarin 4 Mg Tab 4 Mg PO MOFR @ HS Warfarin 2 Mg Tab 2 Mg PO SUTUWETHSA @HS Hydrochlorothiazide 12.5 Mg Tab 12.5 Mg PO DAILY Metoprolol Tartrate 25 Mg Tab 25 Mg PO BID Digoxin 0.125 Mg Tab 0.125 Mg PO DAILY Tamiflu (Oseltamivir Phosphate) 75 Mg Cap 75 Mg PO BID Active Ordered Medications Current Medications Medications (Trade) Dose Ordered Sig/[place] Route Start Time Stop Time Status Last Admin Potassium Chloride 100 ml @ 50 mls/hr Q2H PRN IV 12/13/16 19:15 Potassium Chloride 100 ml @ 50 mls/hr Q2H PRN IV 12/13/16 19:15 Potassium Chloride 100 ml @ 25 mls/hr UNSCH PRN IV 12/13/16 19:15 Potassium Chloride 100 ml @ 50 mls/hr Q2H PRN IV 12/13/16 19:15 (Magnesium Sulfate Inj/NS Inj) 100 ml @ 50 mls/hr UNSCH PRN IV 12/13/16 19:15 Magnesium Oxide 800 mg 800 mg UNSCH PRN PO 12/13/16 19:15 (Magnesium Sulfate Inj/NS Inj) 100 ml @ 50 mls/hr UNSCH PRN IV 12/13/16 19:15 Potassium Phosphate 2000 mg 2,000 mg Q4H PRN PO 12/13/16 19:15 (Sodium Phosphate Inj/NS 250 ml Inj) 250 ml @ 42 mls/hr UNSCH PRN IV 12/13/16 19:15 Potassium Phosphate 2000 mg 2,000 mg UNSCH PRN PO/TUBE 12/13/16 19:15 Potassium Phosphate 30 mmol/ Sodium Chloride 260 ml @ 42 mls/hr UNSCH PRN IV 12/13/16 19:15 Aztreonam 2000 mg/ Sodium Chloride 100 ml @ 200 mls/hr Q8H IV 12/14/16 02:00 12/14/16 16:17 Pharmacy Profile Note 0 ml @ 0 mls/hr UNSCH OTHER 12/13/16 19:45 Azithromycin 500 mg/Sodium Chloride 250 ml @ 250 mls/hr Q24H IV 12/13/16 20:00 12/13/16 20:00 (Coumadin Consult Pharmacy) 0 ml @ 0 mls/hr UNSCH OTHER 12/13/16 19:45 (Lopressor) 25 mg Q12HR PO 12/13/16 21:00 12/13/16 21:28 (Tylenol) 650 mg Q4H PRN PO 12/13/16 19:45 (NS Flush) 2 ml UNSCH PRN IV FLUSH 12/13/16 19:45 (NS Flush) 2 ml BID IV FLUSH 12/13/16 21:00 12/14/16 09:02 (Protonix Inj) 40 mg DAILY IV 12/14/16 09:00 12/14/16 09:01 (Zofran Inj) 4 mg Q6H PRN IV 12/13/16 19:45 12/13/16 21:22 Miscellaneous Information 1 Q361D XX 12/13/16 19:45 (Chlorhexidine 2% Cloth) 3 pack Taper DAILY@04 TOP 12/14/16 04:00 12/10/17 03:59 12/14/16 03:28 Chlorhexidine Gluconate 3 pack 3 pack UNSCH PRN TOP 12/13/16 19:45 (Vancomycin Inj/ NS 250 ml Inj) 250 ml @ 250 mls/hr Q24H IV 12/14/16 12:00 12/14/16 11:22 Miscellaneous Information SPECIFIC LAB TO BE DRAWN:[facility]... ONCE ONCE XX 12/15/16 11:45 12/15/16 11:46 (Coumadin) 3 mg DAILY@16 PO 12/14/16 16:00 12/14/16 16:16 Acetaminophen/ Hydrocodone Bitart 1 tab 1 tab Q6H PRN PO 12/13/16 20:00 (Levophed-Dextrose Drip) 250 ml @ 0 mls/hr TITRATE IV 12/13/16 23:00 12/14/16 11:25 (Brethine Inj) 1 mg UNSCH PRN SQ 12/13/16 23:00 Digoxin 0.125 mg 0.125 mg DAILY PO 12/14/16 09:00 12/14/16 09:02 (Coumadin Consult Pharmacy) 0 ml @ 0 mls/hr UNSCH OTHER 12/14/16 13:30 Family History non contributing Social History no tobacco no alcohol no drugs Physical Exam Vital Signs Vital Signs Date Time Temp Pulse Resp B/P Pulse Ox O2 Delivery O2 Flow Rate FiO2 12/14/16 12:00 90 12/14/16 12:00 90 105/71 12/14/16 12:00 98.0 90 25 105/71 98 12/14/16 10:00 91 12/14/16 10:00 91 89/52 12/14/16 09:32 97 Nasal Cannula 2.00 12/14/16 08:00 79 12/14/16 08:00 79 112/56 12/14/16 08:00 98.2 79 18 112/56 99 12/14/16 06:00 77 12/14/16 06:00 77 112/57 12/14/16 04:00 72 112/55 12/14/16 04:00 72 12/14/16 03:59 96 Nasal Cannula 4.00 12/14/16 02:15 98.4 76 27 102/51 95 12/14/16 02:00 76 12/14/16 02:00 83 114/63 12/14/16 01:00 76 18 106/53 98 Non-Rebreather 12/14/16 00:00 101.7 65 17 91/54 99 Non-Rebreather 12/13/16 23:30 59 18 70/49 98 Non-Rebreather 12/13/16 23:15 100.9 63 18 69/45 97 Non-Rebreather 12/13/16 23:00 98.5 62 20 77/48 95 Non-Rebreather 12/13/16 22:10 66 20 79/50 87 Nasal Cannula 12/13/16 21:46 93 20 95/53 12/13/16 21:44 90 20 82/49 90 Nasal Cannula 4 12/13/16 21:00 111 24 121/68 90 Nasal Cannula 4 12/13/16 20:30 118 28 116/74 90 Nasal Cannula 4 12/13/16 19:00 101.5 143 27 145/63 94 Nasal Cannula 3 12/13/16 18:10 92 Nasal Cannula 2.00 12/13/16 18:10 92 Nasal Cannula 2 12/13/16 17:25 101.1 123 24 169/84 89 Physical Exam vitals stable afib with heart rate controlled at time of my exam heart s1s2 sm 3/6 lung clear abdomen and ext free Laboratory Laboratory Tests Test 12/13/16 12/13/16 12/13/16 12/13/16 17:45 17:57 18:15 21:20 Prothrombin Time 35.6 Prothromb Time International 3.1 Ratio Activated Partial 33.0 Thromboplast Time Sodium Level 140 Potassium Level 4.1 Chloride Level 103 Carbon Dioxide Level 25.0 Anion Gap 12 Blood Urea Nitrogen 10 Creatinine 0.69 Estimat Glomerular Filtration 84 Rate Random Glucose 107 Calcium Level 8.8 Phosphorus Level 2.1 Magnesium Level 1.5 Total Bilirubin 0.9 Aspartate Amino Transf 38 (AST/SGOT) Alanine Aminotransferase 25 (ALT/SGPT) Alkaline Phosphatase 79 Total Creatine Kinase 100 Troponin I 0.02 B-Type Natriuretic Peptide 160 Total Protein 8.2 Albumin 3.9 Lipase 201 White Blood Count 11.1 Red Blood Count 4.24 Hemoglobin 13.1 Hematocrit 39.8 Mean Corpuscular Volume 93.9 Mean Corpuscular Hemoglobin 30.9 Mean Corpuscular Hemoglobin 33.0 Concent Red Cell Distribution Width 13.8 Platelet Count 193 Mean Platelet Volume 8.5 Neutrophils (%) (Auto) 86.6 Lymphocytes (%) (Auto) 6.2 Monocytes (%) (Auto) 6.7 Eosinophils (%) (Auto) 0.2 Basophils (%) (Auto) 0.3 Neutrophils # (Auto) 9.6 Lymphocytes # (Auto) 0.7 Monocytes # (Auto) 0.7 Eosinophils # (Auto) 0.0 Basophils # (Auto) 0.0 CBC Comment DIFF FINAL Differential Comment Thyroid Stimulating Hormone 0.893 3rd Gen Digoxin Level 0.7 Blood Gas Puncture Site RT RADIAL Blood Gas Patient Temperature 98.6 Blood Gas HCO3 27 Blood Gas Base Excess 3.7 Blood Gas Oxygen Saturation 88 Arterial Blood pH 7.51 Arterial Blood Partial 34 Pressure CO2 Arterial Blood Partial 52 Pressure O2 Arterial Blood Oxygen Content 16.2 Arterial Blood 1.4 Carboxyhemoglobin Arterial Blood Methemoglobin 0.6 Blood Gas Hemoglobin 13.2 Oxygen Delivery Device NASAL CANNULA Blood Gas Liter Flow 3 Lactic Acid Level 1.7 Urine Color YELLOW Urine Turbidity HAZY Urine pH 6.0 Urine Specific [place] 1.022 Urine Protein 30 Urine Glucose (UA) NEG Urine Ketones NEG Urine Occult Blood MOD Urine Nitrite NEG Urine Bilirubin NEG Urine Urobilinogen LESS THAN 2.0 Urine Leukocyte Esterase NEG Urine RBC 5 Urine WBC 2 Urine Squamous Epithelial 2 Cells Urine Bacteria OCC Urine Mucus FEW Microscopic Urinalysis Comment CATH-CULTURE IND Test 12/13/16 12/14/16 12/14/16 12/14/16 23:40 02:04 02:41 11:28 Lactic Acid Level 2.8 2.5 Troponin I 0.06 0.06 Nasal Screen MRSA (PCR) NEGATIVE White Blood Count 16.0 Red Blood Count 4.07 Hemoglobin 12.5 Hematocrit 37.9 Mean Corpuscular Volume 93.0 Mean Corpuscular Hemoglobin 30.7 Mean Corpuscular Hemoglobin 33.0 Concent Red Cell Distribution Width 13.9 Platelet Count 197 Mean Platelet Volume 8.8 Neutrophils (%) (Auto) 85.8 Lymphocytes (%) (Auto) 5.4 Monocytes (%) (Auto) 8.5 Eosinophils (%) (Auto) 0.0 Basophils (%) (Auto) 0.3 Neutrophils # (Auto) 13.7 Lymphocytes # (Auto) 0.9 Monocytes # (Auto) 1.4 Eosinophils # (Auto) 0.0 Basophils # (Auto) 0.0 CBC Comment AUTO DIFF Differential Total Cells 100 Counted Neutrophils % (Manual) 48 Band Neutrophils % 25 Lymphocytes % 12 Monocytes % 7 Neutrophils # (Manual) 13.0 Metamyelocytes 8 Differential Comment FINAL DIFF MANUAL Platelet Estimate NORMAL Platelet Morphology Comment NORMAL Red Cell Morphology Comment NORMAL Prothrombin Time 29.9 Prothromb Time International 2.6 Ratio Sodium Level 145 Potassium Level 3.7 3.3 Chloride Level 106 Carbon Dioxide Level 28.9 Anion Gap 10 Blood Urea Nitrogen 16 Creatinine 0.95 Estimat Glomerular Filtration 58 Rate Random Glucose 157 Calcium Level 7.9 Phosphorus Level 3.6 Magnesium Level 1.8 1.8 Date/Time Procedure Status Source Growth 12/13/16 21:20 Urine Culture - Preliminary Resulted Urine Catheterized Urine Gram Negative Alberto 12/13/16 21:20 Legionella Antigen - Final Complete Urine Catheterized Urine PRESUMPTIVE NEGATIVE FOR LEGIONELLA P... 12/13/16 21:20 Streptococcus pneumoniae Antigen (M - Final Complete Urine Catheterized Urine PRESUMPTIVE NEGATIVE FOR STREPTOCOCCU... 12/13/16 17:55 Aerobic Blood Culture - Preliminary Resulted Blood Peripheral NO GROWTH IN 1 DAY 12/13/16 17:55 Anaerobic Blood Culture - Preliminary Resulted Blood Peripheral NO GROWTH IN 1 DAY Result Diagram: 12/14/16 0241 12/14/16 1128 Assessment and Plan Problem List: (1) Pulmonary edema (2) Acute respiratory failure with hypoxia (3) Atrial fibrillation with RVR (4) S/P mitral valve replacement with metallic valve (5) Mitral valve replaced (6) Aortic stenosis Assessment and Plan: continue medical management discussed AVR surgically vs TAVR she ants to think about if she decide to have TAVR will transfer to [facility] for [facility] Problem Qualifiers (1) Pulmonary edema: Qualified Code: J81.0 - Acute pulmonary edema Daniella Stodd[facility] MD Dec 14, 2016 16:23
[2016-12-14] MEDS: AZITHROMYCIN INJ 500 MG in SODIUM CHLOR 0.9% 250 ML INJ 250 ML IV SCH (20:42)
[2016-12-15] VITALS (14 sets, daily range): BP systolic 98–130; BP diastolic 53–65; PULSE 75–113; RESP 13–22; TEMP 98.8–99.7; O2SAT 97–100
[2016-12-15] MEDS: AZTREONAM INJ 2,000 MG in SODIUM CHLORIDE 0.9% INJ 100 ML IV SCH ×3 (02:02→17:09)
[2016-12-15] MEDS: CHLORHEXIDINE GLUCONATE 2 % 1 PACK (2 CLOTHS) TOP SCH (02:02)
[2016-12-15 02:49] LABS: AUTOMATED NEUTROPHIL # 13.6 TH/MM3 (1.8-7.7); BASOPHIL % 0.1 % (0.0-2.0); EOSINOPHIL % 0.1 % (0.0-4.0); HEMATOCRIT 33.8 % (35.0-46.0); HEMO FLAGS DIFF FINAL; LYMPH % 7.4 % (9.0-44.0); LYMPHOCYTE # 1.2 TH/MM3 (1.0-4.8); MEAN CELL VOLUME 94.5 FL (80.0-100.0); MEAN CORPUSCULAR HEMOGLOBIN 29.7 PG (27.0-34.0); MEAN CORPUSCULAR HGB CONC 31.4 % (32.0-36.0); MONO % 6.1 % (0.0-8.0); NEUT % 86.3 % (16.0-70.0); PLATELET COUNT 162 TH/MM3 (150-450); RED BLOOD COUNT 3.57 MIL/MM3 (4.00-5.30); RED CELL DISTRIBUTION WIDTH 14.1 % (11.6-17.2); WHITE BLOOD COUNT 15.7 TH/MM3 (4.0-11.0)
[2016-12-15 02:57] LABS: INTERNATIONAL NORMALIZED RATIO 3.3 RATIO; PROTHROMBIN TIME - PATIENT 37.9 SEC (9.8-11.6)
[2016-12-15 03:09] LABS: ALKALINE PHOSPHATASE 56 U/L (45-117); ALT (GPT) 16 U/L (10-53); ANION GAP 7 MEQ/L (5-15); AST (GOT) 24 U/L (15-37); BICARBONATE 31.2 MEQ/L (21.0-32.0); BLOOD UREA NITROGEN 16 MG/DL (7-18); CHLORIDE 105 MEQ/L (98-107); GLOMERULAR FILTRATION RATE 88 ML/MIN (>89); MAGNESIUM 1.9 MG/DL (1.5-2.5); POTASSIUM 3.7 MEQ/L (3.5-5.1); SODIUM (NA) 143 MEQ/L (136-145); TOTAL BILIRUBIN ADULT 0.9 MG/DL (0.2-1.0)
[2016-12-15] MEDS: RESP: ALBUTEROL 2.5 MG/IPRATROPIUM 0.5 MG NEB (SCH) INH ×4 (04:15→20:43)
--- NOTE | 2016-12-15 07:21 | RADRPT ---
EXAM DATE/TIME: 12/15/2016 05:49 [facility] COMPARISON: CHEST SINGLE AP, December 13, 2016, 18:05. CHEST SINGLE AP, December 13, 2016, 23:38. INDICATIONS : Evaluate for respiratory disease. MEDICAL HISTORY : None. SURGICAL HISTORY : Pacemaker. CABG. ENCOUNTER: Subsequent ACUITY: 4 - 6 days PAIN SCORE: Non-responsive. LOCATION: chest FINDINGS: Pacer wires and right IJ line have not changed. There is evidence for prior median sternotomy. There is no change in cardiomegaly, however perivascular pulmonary edema appears progressed as slightly wor se. CONCLUSION: Slight worsening of pulmonary edema. Yen Escalante MD on December 15, 2016 at 7:18 Board Certified Radiologist. This report was verified electronically.
[2016-12-15] MEDS: PANTOPRAZOLE SODIUM 40 MG VIAL IV SCH (08:33)
[2016-12-15] MEDS: SODIUM CHLORIDE 0.9% FLUSH 5 ML FLUSH IV FLUSH SCH ×2 (08:34→20:21)
[2016-12-15] MEDS: METOPROLOL TARTRATE 25 MG TAB PO SCH ×2 (08:34→20:00)
[2016-12-15] MEDS: DIGOXIN 0.125 MG TAB PO SCH (08:34)
--- NOTE | 2016-12-15 11:34 | HHI.PR ---
Subjective Remarks pt is feeling better Objective Vital Signs Date Time Temp Pulse Resp B/P Pulse Ox O2 Delivery O2 Flow Rate FiO2 12/15/16 10:00 113 12/15/16 10:00 113 106/59 12/15/16 09:08 97 Nasal Cannula 2.00 12/15/16 08:00 99.5 95 13 126/62 100 12/15/16 08:00 95 126/62 12/15/16 08:00 95 12/15/16 06:00 93 12/15/16 06:00 93 112/65 12/15/16 04:00 99.6 93 21 112/65 98 12/15/16 04:00 84 112/57 12/15/16 04:00 84 12/15/16 02:00 82 12/15/16 02:00 82 106/53 12/15/16 00:00 75 12/15/16 00:00 75 98/61 12/15/16 00:00 99.7 75 22 98/61 99 12/14/16 22:00 68 88/53 12/14/16 22:00 68 12/14/16 20:00 98.8 99 23 92/57 99 12/14/16 20:00 98 Nasal Cannula 2.00 12/14/16 20:00 99 92/57 12/14/16 20:00 99 12/14/16 18:00 115 111/58 12/14/16 18:00 115 12/14/16 16:00 87 103/53 12/14/16 16:00 99.0 87 38 97 12/14/16 16:00 87 12/14/16 14:00 92 98/55 12/14/16 14:00 92 12/14/16 12:00 90 12/14/16 12:00 90 105/71 12/14/16 12:00 98.0 90 25 105/71 98 I/O 12/14/16 12/14/16 12/14/16 12/15/16 12/15/16 12/15/16 07:00 15:00 23:00 07:00 15:00 23:00 Intake Total 386 ml 878 ml 839 ml 531 ml Output Total 200 ml 325 ml 275 ml 150 ml Balance 186 ml 553 ml 564 ml 381 ml Intake Oral 250 ml 240 ml 240 ml IV Total 386 ml 628 ml 599 ml 291 ml Output Urine Total 200 ml 325 ml 275 ml 150 ml VSS CHECT: CTA: HEART: S1,S2, AFIB ABD: ST EXT: No edema Result Diagram: 12/15/1621412/15/16214 Assessment and Plan Assessment and Plan pt is doing better...continue current management.... she is stable cardiacwise. Keep=p INR 3-3.5 Bhaskar Wick MD Dec 15, 2016 11:34
[2016-12-15] MEDS: VANCOMYCIN 1,000 MG/NS 250 ML IV SCH ×2 (11:36)
[2016-12-15] MEDS ORDERED: PHARMACY ORDERED LAB XX ONE (11:45)
--- NOTE | 2016-12-15 13:12 | HHI.CCPN ---
Subjective Remarks/Hospital Course 71-year-old [place] female with past medical history of mechanical mitral valve replacement, paroxysmal atrial fibrillation on chronic anticoagulation with warfarin, hypertension, who presents to [facility] with shortness of breath, cough and fever. She states that on Sunday12/08/16 she developed cough and sore throat and was seen by her primary care physician and started on Tamiflu for presumed influenza. She had been around a grandchild who had tested positive for influenza and had been ill with similar symptoms. She states that she initially felt some improvement after taking Tamiflu, however over the last 24 hours she states that she has felt short of breath and has had cough productive of white and blood-tinged sputum. She states her fever had resolved for a few days but upon presentation she has a temp of 101.1. She has completed a 5 day course of Tamiflu. She presented in atrial fibrillation with RVR with rate in the 140s. She was administered Cardizem 13 mg bolus followed by 20 mg IV bolus and is going to be started on a Cardizem drip per ED physician. She remains in A. fib in the 110s. She is on metoprolol and digitoxin for rate control at home. She took her digoxin and metoprolol this morning. She has not had her evening dose of metoprolol. She has not taken HCTZ for couple of days because she had run out. Digoxin level is pending. White blood cell count is 11. Chest x-ray demonstrates small bibasilar infiltrates and right pleural effusion. She was started on aztreonam and vancomycin in the emergency department. She denies chest pain. She has some mild pedal edema but she states this is chronic for her. Her INR is 3.1. 12/14: Lying on bed. Mild distress. Remains on Levophed 10 mcg/min. HR controlled remains in A. fib. Echo EF 55-60% critical with mean gradient 51 , peak gradient 91. Previous mitral valve surgery was in 2003 according to the patient Subjective 12/15: On 3 L nasal cannula. Norepinephrine currently at 1 mcg/m. Heart rate control for A. fib. He says she feels better than admission. Tolerating diet. Not out of bed yet. Objective Vital Signs Date Time Temp Pulse Resp B/P Pulse Ox O2 Delivery O2 Flow Rate FiO2 12/15/16 12:00 98.8 97 18 111/63 100 12/15/16 09:08 Nasal Cannula 2.00 Intake and Output 12/14/16 12/14/16 12/15/16 08:00 16:00 00:00 Intake Total 386 ml 878 ml 839 ml Output Total 200 ml 325 ml 275 ml Balance 186 ml 553 ml 564 ml Result Diagram: 12/15/16 0215 12/15/16 0215 Other Results Microbiology Date/Time Procedure Status Source Growth 12/13/16 21:20 Urine Culture - Final Complete Urine Catheterized Urine 10-50,000 CFU/ML MIXED ROSALBA... 12/13/16 21:20 Legionella Antigen - Final Complete Urine Catheterized Urine PRESUMPTIVE NEGATIVE FOR LEGIONELLA P... 12/13/16 21:20 Streptococcus pneumoniae Antigen (M - Final Complete Urine Catheterized Urine PRESUMPTIVE NEGATIVE FOR STREPTOCOCCU... 12/13/16 17:55 Aerobic Blood Culture - Preliminary Resulted Blood Peripheral NO GROWTH IN 2 DAYS 12/13/16 17:55 Anaerobic Blood Culture - Preliminary Resulted Blood Peripheral NO GROWTH IN 2 DAYS Imaging Last Impressions Chest X-Ray 12/15/16 0600 Signed Impressions: Service Date/Time: Thursday, December 15, 2016 05:49 - CONCLUSION: Slight worsening of pulmonary edema. Yen Escalante MD Objective Remarks GENERAL: 71-year-old female, currently resting in bed in no acute distress on nasal cannula SKIN: Warm and dry no rash HEAD: Atraumatic. Normocephalic. EYES: Pupils equal and round about 3 mm bilaterally and reactive. No scleral icterus. No injection or drainage. ENT: No nasal bleeding or discharge. Mucous membranes pink and moist. Oropharynx without erythema or exudates. NECK: Trachea midline. No JVD appreciated. CARDIOVASCULAR: IRR. Diastolic snap for mitral valve noted. Pansystolic murmur. Nondisplaced PMI. RESPIRATORY: Few crackles appreciated in the bases bilaterally. No and extremities. Symmetrical surgeon. GASTROINTESTINAL: Abdomen soft, non-tender, nondistended. Bowel sounds present. MUSCULOSKELETAL: Extremities with trace lower extremity edema NEUROLOGICAL: Awake and alert. No obvious cranial nerve deficits. Motor grossly within normal limits. Speech is within normal limits. Vascular Central Line Catheter: Yes Assessment to: Continue Date of Insertion: Dec 13, 2016 Line: Central Venous Catheter Side: Right Location: Internal, Jugular A/P Assessment and Plan NEURO/PSYCH: Acetaminophen as needed for pain 1-3/fever Lortab as needed for pain 4-10 RESP: Acute respiratory deficiency Post influenza pneumonia Completed course of Tamiflu. Nasal cannula to maintain saturations greater or equal to 90%. Currently on 3 L DuoNeb every 6 hours. Albuterol every 2 hours as needed. Chest x-ray today with slightly worsening bilateral opacities/edema Recheck checks x-ray in a.m. CV: Shock Atrial fibrillation with RVR Critical aortic stenosis (MG 51 PG 93) valve area 0.44 cm history of mechanical mitral valve replacement Pacemaker in place 2011 HTN Continue Coumadin keep INR 2.5-3.5. Mean of 3 with mitral valve. Levophed to keep map above 65 daily digoxin 0.125 mg daily Follow digoxin level in a.m.. 0.7 yesterday. Continue metoprolol 25 mg by mouth twice a day Hold HCTZ 12.5 mg for now BNP 160. 2-D echo shows 55-60% normal ejection fraction mild LVH and critical aortic stenosis Cardiology consult- 1 dose of Lasix 20 mg IV 1 now. GI: Advance diet as tolerated. FEN/RENAL: -Accurate I's and O's. - Monitor urine output Replace electrolytes per ICU electrolyte protocol as needed ID: Postinfluenzal community acquired pneumonia Follow-up blood cultures. F/U UA and culture. Legionella and pneumococcal antigens neg Day #2 Aztreonam 2 g IV every 8 hours. Continue vancomycin with pharmacy dosing. Azithromycin 500 mg IV daily. HEME: Chronic anticoagulation with warfarin for mechanical mitral valve and atrial fibrillation Leukocytosis Normocytic anemia Continue warfarin with pharmacy consult for dosing Target INR 2.5-3.5. Goal of 3.0 mitral valve anticoagulation. At home on Coumadin 2 mg Sunday, Sunday, Sunday, , Sunday and 24 mg daily Sunday and Sunday. INR 3.3 today. ENDO: Currently Euglycemic. Sliding scale insulin if clinically indicated PROPH: Protonix 40 mg IV daily for stress ulcer prophylaxis. INR is therapeutic also provides DVT prophylaxis ACCESS: Ultrasound-guided peripheral IV placed in ED. R IJ CVL placed 12/14 #2. Critical Care: The total critical care time was 35 minutes. Time to perform other separately billable procedures was not included in the critical care time. Tonio Cisse MD Dec 15, 2016 13:12
[2016-12-15] MEDS ORDERED: POTASSIUM CHLORIDE 20 MEQ CONTROLLED RELEASE TAB PO ONE (13:30)
[2016-12-15] MEDS ORDERED: FUROSEMIDE 20 MG/2 ML VIAL IV PUSH ONE (13:30)
[2016-12-15] MEDS: MAGNESIUM SULFATE 1 GM PREMIX 100 ML IV SCH ×2 (14:27→15:33)
--- NOTE | 2016-12-15 14:53 | EKG ---
Date Performed: 12/14/2016 Time Performed: 11:52:58 PTAGE: 71 years EKG: ATRIAL FIBRILLATION DEMAND PACING ABNORMAL ECG PREVIOUS TRACING : 12/13/2016 20.45 Likely no significant change since prior tracing. DOCTOR: Lisette Hess Interpretating Date/Time 12/15/2016 14:51:48
--- NOTE | 2016-12-15 14:57 | EKG ---
Date Performed: 12/14/2016 Time Performed: 18:18:30 PTAGE: 71 years EKG: ATRIAL FIBRILLATION WITH RAPID VENTRICULAR RESPONSE ST DEVIATION AND MODERATE T-WAVE ABNORM ALITY, CONSIDER ANTEROLATERAL ISCHEMIA ABNORMAL ECG PREVIOUS TRACING : 12/14/2016 11.52 Compared to previous tracing, the patient is now tachycardi c. Demand pacing is not present. DOCTOR: Lisette Hess Interpretating Date/Time 12/15/2016 14:53:11
--- NOTE | 2016-12-15 15:31 | MB ---
cc: SCOTT BONILLA MD DATE OF CONSULTATION: 12/15/2016. HISTORY OF PRESENT ILLNESS: A 71-year-old female originally from the [facility] who moved here in 2009 with a past medical history of mechanical mitral valve replacement in 2003 also with history of chronic paroxysmal atrial fibrillation on anticoagulation with Coumadin who presented to the emergency department with shortness of breath, cough and fever. Apparently she was exposed to a grandchild that was positive for influenza. She finished a course of Tamiflu; however, she still had been complaining of shortness of breath, productive cough, blood-tinged sputum and temperature of 101. She presented with post-influenza community-acquired pneumonia. She was also found to be in atrial fibrillation with some rapid ventricular response and was given some Cardizem and then was admitted for community-acquired pneumonia. She underwent a 2-D echocardiogram, which showed critical stenosis of the aortic valve with a valve area of 0.33, he mitral valve cannot exclude vegetation, mild tricuspid regurgitation. Pulmonary peak pressures of 50. No evidence of pericardial effusion. We were consulted regarding the aortic stenosis. She was also found to be septic with some hypotension and she had been on Levophed drip which has been weaned down. She is currently on digoxin and Coumadin with an INR of 3.3 and possible gram-negative urinary tract infection. PAST MEDICAL HISTORY: 1. Hypertension. 2. Rheumatic heart disease as a child. 3. Atrial fibrillation. PAST SURGICAL HISTORY: Her surgeries include: 1. Mitral valve replacement with a mechanical valve in 2009 in the [facility]. 2. She had a pacer in situ placed on the left chest wall in 2009 and replaced on the right chest wall in 2013 in the [facility]. 3. She has been on chronic coumadin at home. ALLERGIES: PENICILLIN. MEDICATIONS: Her home medications include: 1. Coumadin. 2. Digoxin. 3. Metoprolol. 4. Hydrochlorothiazide. FAMILY HISTORY: Noncontributory SOCIAL HISTORY: The patient , six children. No tobacco or alcohol. moved here from the [facility] in 2009. REVIEW OF SYSTEMS: As above in the history of present illness. Other 12 systems unremarkable. PHYSICAL EXAMINATION: VITAL SIGNS: Blood pressure is 110/60, heart rate of 97, temperature max 98.8. She did come in with a temperature of 101.5. 02 saturation 97 on two liters. GENERAL: The patient is awake, alert and in no acute distress. HEAD, EYES, EARS, NOSE, THROAT: Head is normocephalic, atraumatic. Pupils equal and reactive. Oral mucosa pink, moist. NECK: The neck is supple. No JVD. HEART: Heart sounds irregular rate and rhythm. Positive for a click. LUNGS: Diminished in the bases, otherwise clear to auscultation. She does have a faint expiratory wheeze. ABDOMEN: Abdomen is soft and nontender. No masses or organomegaly. EXTREMITIES: Trace edema. Good distal pulses. LAB WORK: Hemoglobin 10, hematocrit of 33, white cell count of 15, platelet count of 162,000. Sodium 143, potassium 3.7, BUN of 16, creatinine 0.66. INR 3.3. Urine shows some occasional bacteria. Negative MRSA swab. Micr: Blood pressure is unremarkable. Urine culture unremarkable. IMAGING STUDIES: Chest x-ray this morning shows some slight worsening pulmonary edema. IMPRESSION: This is a 71-year-old female with history mechanical mitral valve replacement in 2003 also pacer in situ on the right that was placed in 2013 in the [facility] on chronic Coumadin with history of atrial fibrillation. At this point, the consultation from Dr. Stoddard has been reviewed. He is recommending that if the patient meets criteria to be transferred to [facility] at this time we will sign off and please re-consult if need. No further recommendations at this time. Thank you for this consultation. Dictated by JOHN Ramos. Scott POE/AMAN /2:43 PM /8:31 AM
[2016-12-15] MEDS: NOREPINEPHRINE-DEXTROSE DRIP 250 ML IV SCH (20:00)
[2016-12-15] MEDS: AZITHROMYCIN INJ 500 MG in SODIUM CHLOR 0.9% 250 ML INJ 250 ML IV SCH (20:00)
[2016-12-16] VITALS (18 sets, daily range): BP systolic 86–123; BP diastolic 52–66; PULSE 90–124; RESP 10–24; TEMP 98–99.6; O2SAT 92–100
[2016-12-16] MEDS: AZTREONAM INJ 2,000 MG in SODIUM CHLORIDE 0.9% INJ 100 ML IV SCH ×3 (00:31→18:15)
[2016-12-16] MEDS: RESP: ALBUTEROL 2.5 MG/IPRATROPIUM 0.5 MG NEB (SCH) INH ×4 (03:36→20:35)
[2016-12-16] MEDS: CHLORHEXIDINE GLUCONATE 2 % 1 PACK (2 CLOTHS) TOP SCH (04:00)
[2016-12-16] MEDS: VANCOMYCIN 1,000 MG/NS 250 ML IV SCH ×2 (04:53)
[2016-12-16] MEDS: METOPROLOL TARTRATE 25 MG TAB PO SCH ×3 (04:54→22:00)
--- NOTE | 2016-12-16 04:55 | RADRPT ---
EXAM DATE/TIME: 12/16/2016 02:47 [facility] COMPARISON: CHEST SINGLE AP, December 15, 2016, 5:49. INDICATIONS : Shortness of breath, possible pulmonary disease. MEDICAL HISTORY : None. SURGICAL HISTORY : Pacemaker. CABG. ENCOUNTER: Subsequent ACUITY: 4 - 6 days PAIN SCORE: Non-responsive. LOCATION: Bilateral chest FINDINGS: Right central line in superior vena cava. Pacer lead tips overlie right ventricle, stable. Postop med dieudonne sternotomy and mitral valve replacement. Cardiomegaly. Mild edema pattern with small effusions an d basilar airspace disease similar to December 15. CONCLUSION: 1. Stable exam since December 15 with mild edema pattern and small bilateral pleural effusions. Cardiome ema. Lucius Guzman MD on December 16, 2016 at 4:51 Board Certified Radiologist. This report was verified electronically.
[2016-12-16] MEDS ORDERED: DILTIAZEM INJ 125 MG in SODIUM CHLORIDE 0.9% INJ 100 ML IV SCH (05:00)
[2016-12-16] MEDS ORDERED: DILTIAZEM HCL 25 MG/5 ML VIAL IVP ONE (05:00)
[2016-12-16 05:18] LABS: AUTOMATED NEUTROPHIL # 6.6 TH/MM3 (1.8-7.7); BASOPHIL % 0.3 % (0.0-2.0); EOSINOPHIL % 0.5 % (0.0-4.0); HEMATOCRIT 31.1 % (35.0-46.0); HEMO FLAGS DIFF FINAL; LYMPH % 10.5 % (9.0-44.0); LYMPHOCYTE # 0.9 TH/MM3 (1.0-4.8); MEAN CELL VOLUME 93.6 FL (80.0-100.0); MEAN CORPUSCULAR HEMOGLOBIN 31.3 PG (27.0-34.0); MEAN CORPUSCULAR HGB CONC 33.5 % (32.0-36.0); MONO % 7.2 % (0.0-8.0); NEUT % 81.5 % (16.0-70.0); PLATELET COUNT 191 TH/MM3 (150-450); RED BLOOD COUNT 3.33 MIL/MM3 (4.00-5.30); RED CELL DISTRIBUTION WIDTH 13.9 % (11.6-17.2); WHITE BLOOD COUNT 8.1 TH/MM3 (4.0-11.0)
[2016-12-16 05:37] LABS: ANION GAP 7 MEQ/L (5-15); AST (GOT) 31 U/L (15-37); BICARBONATE 31.4 MEQ/L (21.0-32.0); BLOOD UREA NITROGEN 11 MG/DL (7-18); CHLORIDE 105 MEQ/L (98-107); GLOMERULAR FILTRATION RATE 113 ML/MIN (>89); MAGNESIUM 2.2 MG/DL (1.5-2.5); POTASSIUM 3.9 MEQ/L (3.5-5.1); SODIUM (NA) 143 MEQ/L (136-145)
[2016-12-16 05:50] LABS: ALKALINE PHOSPHATASE 56 U/L (45-117); ALT (GPT) 21 U/L (10-53); DIGOXIN 0.8 NG/ML (0.8-2.0); TOTAL BILIRUBIN ADULT 0.7 MG/DL (0.2-1.0)
[2016-12-16] MEDS: SODIUM PHOSPHATE INJ 30 MMOL in SODIUM CHLOR 0.9% 250 ML INJ 240 ML IV PRN ×2 (06:42→16:30)
[2016-12-16 06:48] LABS: INTERNATIONAL NORMALIZED RATIO 2.8 RATIO; PROTHROMBIN TIME - PATIENT 32.9 SEC (9.8-11.6)
[2016-12-16] MEDS: SODIUM CHLORIDE 0.9% FLUSH 5 ML FLUSH IV FLUSH SCH ×2 (08:05→19:44)
[2016-12-16] MEDS: PANTOPRAZOLE SODIUM 40 MG VIAL IV SCH (08:05)
[2016-12-16] MEDS: DIGOXIN 0.125 MG TAB PO SCH (08:05)
[2016-12-16] MEDS ORDERED: POTASSIUM PHOSPHATE INJ 30 MMOL in SODIUM CHLOR 0.9% 250 ML INJ 250 ML IV ONE (14:00)
--- NOTE | 2016-12-16 14:03 | HHI.CCPN ---
Subjective Remarks/Hospital Course 71-year-old [place] female with past medical history of mechanical mitral valve replacement, paroxysmal atrial fibrillation on chronic anticoagulation with warfarin, hypertension, who presents to [facility] with shortness of breath, cough and fever. She states that on Sunday12/08/16 she developed cough and sore throat and was seen by her primary care physician and started on Tamiflu for presumed influenza. She had been around a grandchild who had tested positive for influenza and had been ill with similar symptoms. She states that she initially felt some improvement after taking Tamiflu, however over the last 24 hours she states that she has felt short of breath and has had cough productive of white and blood-tinged sputum. She states her fever had resolved for a few days but upon presentation she has a temp of 101.1. She has completed a 5 day course of Tamiflu. She presented in atrial fibrillation with RVR with rate in the 140s. She was administered Cardizem 13 mg bolus followed by 20 mg IV bolus and is going to be started on a Cardizem drip per ED physician. She remains in A. fib in the 110s. She is on metoprolol and digitoxin for rate control at home. She took her digoxin and metoprolol this morning. She has not had her evening dose of metoprolol. She has not taken HCTZ for couple of days because she had run out. Digoxin level is pending. White blood cell count is 11. Chest x-ray demonstrates small bibasilar infiltrates and right pleural effusion. She was started on aztreonam and vancomycin in the emergency department. She denies chest pain. She has some mild pedal edema but she states this is chronic for her. Her INR is 3.1. 12/14: Lying on bed. Mild distress. Remains on Levophed 10 mcg/min. HR controlled remains in A. fib. Echo EF 55-60% critical with mean gradient 51 , peak gradient 91. Previous mitral valve surgery was in 2003 according to the patient 12/15: On 3 L nasal cannula. Norepinephrine currently at 1 mcg/m. Heart rate control for A. fib. He says she feels better than admission. Tolerating diet. Not out of bed yet. Subjective 12/16: Afebrile. A. fib with RVR overnight responded to conservative treatment. Cardizem drip initiated. Appears comfortable at bedside. A. fib is currently rate controlled. Objective Vital Signs Date Time Temp Pulse Resp B/P Pulse Ox O2 Delivery O2 Flow Rate FiO2 12/16/16 12:00 99 86/53 12/16/16 10:09 98 12/16/16 05:42 13 12/16/16 04:00 98.9 12/15/16 20:45 Nasal Cannula 2.00 Intake and Output 12/15/16 12/15/16 12/16/16 08:00 16:00 00:00 Intake Total 531 ml 757 ml 933 ml Output Total 150 ml 325 ml 1775 ml Balance 381 ml 432 ml -842 ml Result Diagram: 12/16/16 0450 12/16/16 0450 Other Results Microbiology Date/Time Procedure Status Source Growth 12/15/16 23:00 Influenza Types A,B Antigen (VICKY) - Final Complete Nasal Washing NEGATIVE FOR FLU A AND B ANTIGEN.... 12/13/16 21:20 Urine Culture - Final Complete Urine Catheterized Urine 10-50,000 CFU/ML MIXED ROSALBA... 12/13/16 21:20 Legionella Antigen - Final Complete Urine Catheterized Urine PRESUMPTIVE NEGATIVE FOR LEGIONELLA P... 12/13/16 21:20 Streptococcus pneumoniae Antigen (M - Final Complete Urine Catheterized Urine PRESUMPTIVE NEGATIVE FOR STREPTOCOCCU... 12/13/16 17:55 Aerobic Blood Culture - Preliminary Resulted Blood Peripheral NO GROWTH IN 3 DAYS 12/13/16 17:55 Anaerobic Blood Culture - Preliminary Resulted Blood Peripheral NO GROWTH IN 3 DAYS Imaging Last Impressions Chest X-Ray 12/16/16 0600 Signed Impressions: Service Date/Time: Friday, December 16, 2016 02:47 - CONCLUSION: 1. Stable exam since December 15 with mild edema pattern and small bilateral pleural effusions. Cardiomegaly. Lucius Guzman MD Objective Remarks GENERAL: 71-year-old female, currently resting in bed in no acute distress on nasal cannula SKIN: Warm and dry no rash HEAD: Atraumatic. Normocephalic. EYES: Pupils equal and round about 3 mm bilaterally and reactive. No scleral icterus. No injection or drainage. ENT: No nasal bleeding or discharge. Mucous membranes pink and moist. Oropharynx without erythema or exudates. NECK: Trachea midline. No JVD appreciated. CARDIOVASCULAR: IRR. Diastolic snap for mitral valve noted. Pansystolic murmur. Nondisplaced PMI. RESPIRATORY: Few crackles appreciated in the bases bilaterally. No and extremities. Symmetrical surgeon. GASTROINTESTINAL: Abdomen soft, non-tender, nondistended. Bowel sounds present. MUSCULOSKELETAL: Extremities with trace lower extremity edema NEUROLOGICAL: Awake and alert. No obvious cranial nerve deficits. Motor grossly within normal limits. Speech is within normal limits. Vascular Central Line Catheter: Yes Assessment to: Continue Date of Insertion: Dec 13, 2016 Line: Central Venous Catheter Side: Right Location: Internal, Jugular A/P Assessment and Plan NEURO/PSYCH: Acetaminophen as needed for pain 1-3/fever Lortab as needed for pain 4-10 RESP: Acute respiratory deficiency Post influenza pneumonia Completed course of Tamiflu. Nasal cannula to maintain saturations greater or equal to 90%. Currently on 3 L DuoNeb every 6 hours. Albuterol every 2 hours as needed. Chest x-ray today with stable bilateral opacities/edema Recheck checks x-ray in a.m. CV: Shock Atrial fibrillation with RVR Critical aortic stenosis (MG 51 PG 93) valve area 0.44 cm history of mechanical mitral valve replacement Pacemaker in place 2011 HTN Continue Coumadin keep INR 2.5-3.5. Mean of 3 with mitral valve. Levophed to keep map above 65 daily digoxin 0.125 mg daily Follow digoxin level 0.8 Continue metoprolol 12.5 mg by mouth 3 times a day Hold HCTZ 12.5 mg for now BNP 160. 2-D echo shows 55-60% normal ejection fraction mild LVH and critical aortic stenosis Cardiology consult- 1 dose of Lasix 20 mg IV 1 now. GI: Advance diet as tolerated. FEN/RENAL: Hypophosphatemia -Accurate I's and O's. - Monitor urine output Replace electrolytes per ICU electrolyte protocol as needed 30 mmol K-Phos IV 1 now. Recheck in a.m. ID: Postinfluenzal community acquired pneumonia Follow-up blood cultures. F/U UA and culture. Legionella and pneumococcal antigens neg Day #3 Aztreonam 2 g IV every 8 hours. Continue vancomycin with pharmacy dosing. Azithromycin 500 mg IV daily. HEME: Chronic anticoagulation with warfarin for mechanical mitral valve and atrial fibrillation Leukocytosis Normocytic anemia Continue warfarin with pharmacy consult for dosing Target INR 2.5-3.5. Ulcerative 3-3.5. Goal of 3.0 mitral valve anticoagulation. At home on Coumadin 2 mg Sunday, Sunday, Sunday, , Sunday and 24 mg daily Sunday and Sunday. INR 2.8 today. ENDO: Currently Euglycemic. Sliding scale insulin if clinically indicated PROPH: Protonix 40 mg IV daily for stress ulcer prophylaxis. INR is therapeutic also provides DVT prophylaxis ACCESS: Ultrasound-guided peripheral IV placed in ED. R IJ CVL placed 12/14 #2. Critical Care: The total critical care time was 35 minutes. Time to perform other separately billable procedures was not included in the critical care time. Tonio Cisse MD Dec 16, 2016 14:03
[2016-12-16] MEDS ORDERED: TERBUTALINE INJ 1 MG/ML AMP SQ PRN (14:15)
[2016-12-16] MEDS ORDERED: PHENYLEPHRINE INJ 40 MG in DEXTROSE 5% IN WATE 500 ML INJ 496 ML IV SCH ×2 (15:15)
[2016-12-16] MEDS ORDERED: WARFARIN SOD 2.5 MG TAB PO SCH (16:00)
[2016-12-16] MEDS: AZITHROMYCIN INJ 500 MG in SODIUM CHLOR 0.9% 250 ML INJ 250 ML IV SCH (19:44)
[2016-12-16] MEDS ORDERED: PHARMACY ORDERED LAB XX ONE (23:45)
[2016-12-17] VITALS (14 sets, daily range): BP systolic 101–148; BP diastolic 54–108; PULSE 61–145; RESP 14–24; TEMP 98–98.8; O2SAT 92–99
[2016-12-17] MEDS: VANCOMYCIN 1,000 MG/NS 250 ML IV SCH ×2 (01:00)
[2016-12-17] MEDS: AZTREONAM INJ 2,000 MG in SODIUM CHLORIDE 0.9% INJ 100 ML IV SCH ×2 (01:01→08:24)
[2016-12-17] MEDS: CHLORHEXIDINE GLUCONATE 2 % 1 PACK (2 CLOTHS) TOP SCH ×2 (01:01→21:26)
[2016-12-17] MEDS: RESP: ALBUTEROL 2.5 MG/IPRATROPIUM 0.5 MG NEB (SCH) INH ×4 (03:24→20:38)
--- NOTE | 2016-12-17 05:26 | RADRPT ---
EXAM DATE/TIME: 12/17/2016 03:30 [facility] COMPARISON: CHEST SINGLE AP, December 16, 2016, 2:47. INDICATIONS : Shortness of breath, possible pulmonary disease. MEDICAL HISTORY : None. SURGICAL HISTORY : CABG. Pacemaker. ENCOUNTER: Subsequent ACUITY: 1 week PAIN SCORE: Non-responsive. LOCATION: Bilateral chest FINDINGS: A single view of the chest demonstrates right central line in superior vena cava. Pacer leads overlie right atrium and right ventricle. Basal airspace disease and bilateral effusions present. Postoperat ck median sternotomy and valve replacement. CONCLUSION: 1. Slight increase in basilar airspace disease compared with December 16. Small effusions remain. Lucius Guzman MD on December 17, 2016 at 5:24 Board Certified Radiologist. This report was verified electronically.
[2016-12-17] MEDS: METOPROLOL TARTRATE 25 MG TAB PO SCH ×3 (06:00→21:25)
[2016-12-17 08:09] LABS: AUTOMATED NEUTROPHIL # 3.8 TH/MM3 (1.8-7.7); BASOPHIL % 0.4 % (0.0-2.0); EOSINOPHIL # 0.1 TH/MM3 (0-0.4); EOSINOPHIL % 1.8 % (0.0-4.0); HEMATOCRIT 32.9 % (35.0-46.0); HEMO FLAGS DIFF FINAL; LYMPH % 17.7 % (9.0-44.0); MEAN CELL VOLUME 94.5 FL (80.0-100.0); MEAN CORPUSCULAR HEMOGLOBIN 30.6 PG (27.0-34.0); MEAN CORPUSCULAR HGB CONC 32.3 % (32.0-36.0); MONO % 10.7 % (0.0-8.0); NEUT % 69.4 % (16.0-70.0); PLATELET COUNT 209 TH/MM3 (150-450); RED BLOOD COUNT 3.48 MIL/MM3 (4.00-5.30); RED CELL DISTRIBUTION WIDTH 14.1 % (11.6-17.2); WHITE BLOOD COUNT 5.4 TH/MM3 (4.0-11.0)
[2016-12-17 08:16] LABS: INTERNATIONAL NORMALIZED RATIO 2.5 RATIO; PROTHROMBIN TIME - PATIENT 29.3 SEC (9.8-11.6)
[2016-12-17] MEDS: SODIUM CHLORIDE 0.9% FLUSH 5 ML FLUSH IV FLUSH SCH ×2 (08:23→21:26)
[2016-12-17] MEDS: PANTOPRAZOLE SODIUM 40 MG VIAL IV SCH (08:23)
[2016-12-17 08:37] LABS: ALT (GPT) 21 U/L (10-53); ANION GAP 7 MEQ/L (5-15); AST (GOT) 28 U/L (15-37); BICARBONATE 29.4 MEQ/L (21.0-32.0); BLOOD UREA NITROGEN 10 MG/DL (7-18); CHLORIDE 108 MEQ/L (98-107); GLOMERULAR FILTRATION RATE 134 ML/MIN (>89); POTASSIUM 3.7 MEQ/L (3.5-5.1); SODIUM (NA) 144 MEQ/L (136-145)
[2016-12-17 08:40] LABS: ALKALINE PHOSPHATASE 62 U/L (45-117); TOTAL BILIRUBIN ADULT 0.7 MG/DL (0.2-1.0)
[2016-12-17] MEDS ORDERED: POTASSIUM CHLORIDE 20 MEQ CONTROLLED RELEASE TAB PO ONE (08:45)
[2016-12-17] MEDS ORDERED: FUROSEMIDE 20 MG/2 ML VIAL IV PUSH ONE (08:45)
[2016-12-17] MEDS: DIGOXIN 0.125 MG TAB PO SCH (08:49)
--- NOTE | 2016-12-17 09:33 | HHI.CCPN ---
Subjective Remarks/Hospital Course 71-year-old [place] female with past medical history of mechanical mitral valve replacement, paroxysmal atrial fibrillation on chronic anticoagulation with warfarin, hypertension, who presents to [facility] with shortness of breath, cough and fever. She states that on Sunday12/08/16 she developed cough and sore throat and was seen by her primary care physician and started on Tamiflu for presumed influenza. She had been around a grandchild who had tested positive for influenza and had been ill with similar symptoms. She states that she initially felt some improvement after taking Tamiflu, however over the last 24 hours she states that she has felt short of breath and has had cough productive of white and blood-tinged sputum. She states her fever had resolved for a few days but upon presentation she has a temp of 101.1. She has completed a 5 day course of Tamiflu. She presented in atrial fibrillation with RVR with rate in the 140s. She was administered Cardizem 13 mg bolus followed by 20 mg IV bolus and is going to be started on a Cardizem drip per ED physician. She remains in A. fib in the 110s. She is on metoprolol and digitoxin for rate control at home. She took her digoxin and metoprolol this morning. She has not had her evening dose of metoprolol. She has not taken HCTZ for couple of days because she had run out. Digoxin level is pending. White blood cell count is 11. Chest x-ray demonstrates small bibasilar infiltrates and right pleural effusion. She was started on aztreonam and vancomycin in the emergency department. She denies chest pain. She has some mild pedal edema but she states this is chronic for her. Her INR is 3.1. 12/14: Lying on bed. Mild distress. Remains on Levophed 10 mcg/min. HR controlled remains in A. fib. Echo EF 55-60% critical with mean gradient 51 , peak gradient 91. Previous mitral valve surgery was in 2003 according to the patient 12/15: On 3 L nasal cannula. Norepinephrine currently at 1 mcg/m. Heart rate control for A. fib. He says she feels better than admission. Tolerating diet. Not out of bed yet. 12/16: Afebrile. A. fib with RVR overnight responded to conservative treatment. Cardizem drip initiated. Appears comfortable at bedside. A. fib is currently rate controlled. Subjective 12/17: Afebrile. Went into rapid ventricular response rate or fibrillation overnight and placed on Cardizem drip at 15 mg an hour. She is currently at 10 mg an hour. Hemodynamically stable. Remains on 3 L nasal cannula. Denies chest pain. Objective Vital Signs Date Time Temp Pulse Resp B/P Pulse Ox O2 Delivery O2 Flow Rate FiO2 12/17/16 08:30 94 Nasal Cannula 2.00 12/17/16 06:00 89 127/69 12/17/16 04:00 98.8 21 12/16/16 20:37 21 Intake and Output 12/16/16 12/16/16 12/17/16 08:00 16:00 00:00 Intake Total 549 ml 505 ml 1286 ml Output Total 240 ml 450 ml 350 ml Balance 309 ml 55 ml 936 ml Result Diagram: 12/17/16 0545 12/17/16 0545 Other Results Microbiology Date/Time Procedure Status Source Growth 12/15/16 23:00 Influenza Types A,B Antigen (VICKY) - Final Complete Nasal Washing NEGATIVE FOR FLU A AND B ANTIGEN.... 12/13/16 21:20 Urine Culture - Final Complete Urine Catheterized Urine 10-50,000 CFU/ML MIXED ROSALBA... 12/13/16 21:20 Legionella Antigen - Final Complete Urine Catheterized Urine PRESUMPTIVE NEGATIVE FOR LEGIONELLA P... 12/13/16 21:20 Streptococcus pneumoniae Antigen (M - Final Complete Urine Catheterized Urine PRESUMPTIVE NEGATIVE FOR STREPTOCOCCU... 12/13/16 17:55 Aerobic Blood Culture - Preliminary Resulted Blood Peripheral NO GROWTH IN 3 DAYS 12/13/16 17:55 Anaerobic Blood Culture - Preliminary Resulted Blood Peripheral NO GROWTH IN 3 DAYS Imaging Last Impressions Chest X-Ray 12/17/16 0600 Signed Impressions: Service Date/Time: Saturday, December 17, 2016 03:30 - CONCLUSION: 1. Slight increase in basilar airspace disease compared with December 16. Small effusions remain. Lucius Guzman MD Objective Remarks GENERAL: 71-year-old female, currently resting in bed in no acute distress on nasal cannula SKIN: Warm and dry no rash HEAD: Atraumatic. Normocephalic. EYES: Pupils equal and round about 3 mm bilaterally and reactive. No scleral icterus. No injection or drainage. ENT: No nasal bleeding or discharge. Mucous membranes pink and moist. Oropharynx without erythema or exudates. NECK: Trachea midline. No JVD appreciated. CARDIOVASCULAR: IRR. Diastolic snap for mitral valve noted. Pansystolic murmur. Nondisplaced PMI. RESPIRATORY: Few crackles appreciated in the bases bilaterally. No and extremities. Symmetrical surgeon. GASTROINTESTINAL: Abdomen soft, non-tender, nondistended. Bowel sounds present. MUSCULOSKELETAL: Extremities with trace lower extremity edema NEUROLOGICAL: Awake and alert. No obvious cranial nerve deficits. Motor grossly within normal limits. Speech is within normal limits. Date of Insertion: Dec 13, 2016 Line: Central Venous Catheter Side: Right Location: Internal, Jugular A/P Assessment and Plan NEURO/PSYCH: Acetaminophen as needed for pain 1-3/fever Lortab as needed for pain 4-10 RESP: Acute respiratory deficiency Post influenza pneumonia Completed course of Tamiflu. Nasal cannula to maintain saturations greater or equal to 92%. Currently on 3 L DuoNeb every 6 hours. Albuterol every 2 hours as needed. Chest x-ray today with stable bilateral opacities/edema Recheck checks x-ray in a.m. 12/18 CV: Shock Atrial fibrillation with RVR Critical aortic stenosis (MG 51 PG 93) valve area 0.44 cm history of mechanical mitral valve replacement Pacemaker in place 2011 HTN Continue Coumadin keep INR 2.5-3.5. Mean of 3 with mitral valve. Currently 2.5 Levophed to keep map above 65 currently on hold daily digoxin 0.125 mg daily Follow digoxin level 0.8 Continue metoprolol 25 mg twice a day/home dosage Started overnight on Cardizem drip at 15 mg an hour due to atrial fibrillation with RVR. We'll attempt to start oral Cardizem 30 every 6 and attempt to wean off Hold HCTZ 12.5 mg for now BNP 160. 2-D echo shows 55-60% normal ejection fraction mild LVH and critical aortic stenosis Cardiology consult- Evaluated by CTS here. Signed off. Patient requesting transfer to [facility] when stable GI: Advance diet as tolerated. Protonix for GI prophylaxis Colace/as needed Senokot for bowel regimen FEN/RENAL: Hypophosphatemia - -Accurate I's and O's. - Monitor urine output Replace electrolytes per ICU electrolyte protocol as needed 30 mmol K-Phos IV 1 now. Recheck in a.m. ID: Postinfluenzal community acquired pneumonia Follow-up blood cultures. F/U UA and culture. Legionella and pneumococcal antigens neg Day #4 azithromycin, vancomycin and cefepime all discontinued. Cultures negative. HEME: Chronic anticoagulation with warfarin for mechanical mitral valve and atrial fibrillation Leukocytosis Normocytic anemia Continue warfarin with pharmacy consult for dosing. Currently 2.5 mg Target INR 2.5-3.5. Ideally 3-3.5. Goal of 3.0 mitral valve anticoagulation. At home on Coumadin 2 mg Sunday, Sunday, Sunday, , Sunday and 24 mg daily Sunday and Sunday. INR 2.5 today. ENDO: Currently Euglycemic. Sliding scale insulin if clinically indicated PROPH: Protonix 40 mg podaily for stress ulcer prophylaxis. INR is therapeutic also provides DVT prophylaxis ACCESS: Ultrasound-guided peripheral IV placed in ED. R IJ CVL placed 12/14 #4 Critical Care: The total critical care time was 35 minutes. Time to perform other separately billable procedures was not included in the critical care time. Tonio Cisse MD Dec 17, 2016 09:33
[2016-12-17] MEDS ORDERED: POTASSIUM PHOSPHATE INJ 30 MMOL in SODIUM CHLOR 0.9% 250 ML INJ 250 ML IV ONE (09:45)
[2016-12-17] MEDS ORDERED: SENNOSIDES 8.6 MG TAB PO PRN (09:45)
[2016-12-17] MEDS: DILTIAZEM HCL 30 MG TAB PO SCH ×4 (10:14→21:25)
[2016-12-17] MEDS: WARFARIN SOD 3 MG TAB PO SCH (15:38)
[2016-12-17] MEDS: DOCUSATE SODIUM 100 MG CAP PO SCH (21:00)
[2016-12-18] VITALS (8 sets, daily range): BP systolic 117–148; BP diastolic 58–87; PULSE 60–106; RESP 18–19; TEMP 98.7–98.9; O2SAT 95–100
[2016-12-18] MEDS: RESP: ALBUTEROL 2.5 MG/IPRATROPIUM 0.5 MG NEB (SCH) INH ×4 (03:42→20:21)
--- NOTE | 2016-12-18 04:46 | RADRPT ---
EXAM DATE/TIME: 12/18/2016 03:53 [facility] COMPARISON: CHEST SINGLE AP, December 17, 2016, 3:30. INDICATIONS : Shortness of breath, possible pulmonary disease. MEDICAL HISTORY : None. SURGICAL HISTORY : CABG. ENCOUNTER: Subsequent ACUITY: 1 week PAIN SCORE: Non-responsive. LOCATION: Bilateral chest FINDINGS: Median sternotomy wires and cardiac valvular prosthesis noted. Right jugular line and single lead rig ht subclavian approach transvenous pacer noted. Old left-sided pacer leads are present. There are annabel ateral effusions, cardiomegaly and bilateral consolidation in the lower lobes again seen. CONCLUSION: No significant change has occurred. Stanford Hardy MD on December 18, 2016 at 4:44 Board Certified Radiologist. This report was verified electronically.
[2016-12-18 06:45] LABS: INTERNATIONAL NORMALIZED RATIO 3.1 RATIO; PROTHROMBIN TIME - PATIENT 35.5 SEC (9.8-11.6)
[2016-12-18 06:57] LABS: AUTOMATED NEUTROPHIL # 2.6 TH/MM3 (1.8-7.7); BASOPHIL % 0.4 % (0.0-2.0); EOSINOPHIL # 0.2 TH/MM3 (0-0.4); EOSINOPHIL % 4.1 % (0.0-4.0); HEMATOCRIT 33.2 % (35.0-46.0); HEMO FLAGS DIFF FINAL; LYMPH % 19.4 % (9.0-44.0); LYMPHOCYTE # 0.9 TH/MM3 (1.0-4.8); MEAN CELL VOLUME 93.8 FL (80.0-100.0); MEAN CORPUSCULAR HEMOGLOBIN 30.2 PG (27.0-34.0); MEAN CORPUSCULAR HGB CONC 32.2 % (32.0-36.0); MONO % 16.3 % (0.0-8.0); NEUT % 59.8 % (16.0-70.0); PLATELET COUNT 238 TH/MM3 (150-450); RED BLOOD COUNT 3.54 MIL/MM3 (4.00-5.30); RED CELL DISTRIBUTION WIDTH 13.7 % (11.6-17.2); WHITE BLOOD COUNT 4.4 TH/MM3 (4.0-11.0)
[2016-12-18 07:04] LABS: BICARBONATE 31.6 MEQ/L (21.0-32.0); MAGNESIUM 1.9 MG/DL (1.5-2.5); POTASSIUM 3.8 MEQ/L (3.5-5.1)
[2016-12-18] MEDS: SODIUM CHLORIDE 0.9% FLUSH 5 ML FLUSH IV FLUSH SCH ×2 (09:00→20:09)
[2016-12-18] MEDS: DIGOXIN 0.125 MG TAB PO SCH (09:45)
[2016-12-18] MEDS: DOCUSATE SODIUM 100 MG CAP PO SCH ×3 (09:45→20:11)
[2016-12-18] MEDS: DILTIAZEM HCL 30 MG TAB PO SCH (09:45)
[2016-12-18] MEDS: METOPROLOL TARTRATE 25 MG TAB PO SCH ×2 (09:45→20:09)
[2016-12-18] MEDS: PANTOPRAZOLE SOD 40 MG DELAYED RELEASE TAB PO SCH (09:45)
--- NOTE | 2016-12-18 10:10 | HHI.CCPN ---
Subjective Remarks/Hospital Course 71-year-old [place] female with past medical history of mechanical mitral valve replacement, paroxysmal atrial fibrillation on chronic anticoagulation with warfarin, hypertension, who presents to [facility] with shortness of breath, cough and fever. She states that on Sunday12/08/16 she developed cough and sore throat and was seen by her primary care physician and started on Tamiflu for presumed influenza. She had been around a grandchild who had tested positive for influenza and had been ill with similar symptoms. She states that she initially felt some improvement after taking Tamiflu, however over the last 24 hours she states that she has felt short of breath and has had cough productive of white and blood-tinged sputum. She states her fever had resolved for a few days but upon presentation she has a temp of 101.1. She has completed a 5 day course of Tamiflu. She presented in atrial fibrillation with RVR with rate in the 140s. She was administered Cardizem 13 mg bolus followed by 20 mg IV bolus and is going to be started on a Cardizem drip per ED physician. She remains in A. fib in the 110s. She is on metoprolol and digitoxin for rate control at home. She took her digoxin and metoprolol this morning. She has not had her evening dose of metoprolol. She has not taken HCTZ for couple of days because she had run out. Digoxin level is pending. White blood cell count is 11. Chest x-ray demonstrates small bibasilar infiltrates and right pleural effusion. She was started on aztreonam and vancomycin in the emergency department. She denies chest pain. She has some mild pedal edema but she states this is chronic for her. Her INR is 3.1. 12/14: Lying on bed. Mild distress. Remains on Levophed 10 mcg/min. HR controlled remains in A. fib. Echo EF 55-60% critical with mean gradient 51 , peak gradient 91. Previous mitral valve surgery was in 2003 according to the patient 12/15: On 3 L nasal cannula. Norepinephrine currently at 1 mcg/m. Heart rate control for A. fib. He says she feels better than admission. Tolerating diet. Not out of bed yet. 12/16: Afebrile. A. fib with RVR overnight responded to conservative treatment. Cardizem drip initiated. Appears comfortable at bedside. A. fib is currently rate controlled. Subjective 12/17: Afebrile. Went into rapid ventricular response rate or fibrillation overnight and placed on Cardizem drip at 15 mg an hour. She is currently at 10 mg an hour. Hemodynamically stable. Remains on 3 L nasal cannula. Denies chest pain. 12/18 Patient is sitting up in chair in NAD. Off Cardizem drip. Afebrile. Objective Vital Signs Date Time Temp Pulse Resp B/P Pulse Ox O2 Delivery O2 Flow Rate FiO2 12/18/16 09:09 95 Nasal Cannula 2.00 12/18/16 06:00 86 12/18/16 06:00 148/87 12/18/16 04:00 98.9 19 12/16/16 20:37 21 Intake and Output 12/17/16 12/17/16 12/17/16 07:59 15:59 23:59 Intake Total 523 ml 810 ml 183 ml Output Total 300 ml 2600 ml 275 ml Balance 223 ml -1790 ml -92 ml Result Diagram: 12/18/16 0600 12/18/16 0600 Other Results Laboratory Tests Test 12/18/16 06:00 White Blood Count 4.4 TH/MM3 Red Blood Count 3.54 MIL/MM3 Hemoglobin 10.7 GM/DL Hematocrit 33.2 % Mean Corpuscular Volume 93.8 FL Mean Corpuscular Hemoglobin 30.2 PG Mean Corpuscular Hemoglobin 32.2 % Concent Red Cell Distribution Width 13.7 % Platelet Count 238 TH/MM3 Mean Platelet Volume 8.1 FL Neutrophils (%) (Auto) 59.8 % Lymphocytes (%) (Auto) 19.4 % Monocytes (%) (Auto) 16.3 % Eosinophils (%) (Auto) 4.1 % Basophils (%) (Auto) 0.4 % Neutrophils # (Auto) 2.6 TH/MM3 Lymphocytes # (Auto) 0.9 TH/MM3 Monocytes # (Auto) 0.7 TH/MM3 Eosinophils # (Auto) 0.2 TH/MM3 Basophils # (Auto) 0.0 TH/MM3 CBC Comment DIFF FINAL Differential Comment Prothrombin Time 35.5 SEC Prothromb Time International 3.1 RATIO Ratio Sodium Level 145 MEQ/L Potassium Level 3.8 MEQ/L Chloride Level 107 MEQ/L Carbon Dioxide Level 31.6 MEQ/L Anion Gap 6 MEQ/L Blood Urea Nitrogen 10 MG/DL Creatinine 0.51 MG/DL Estimat Glomerular Filtration 119 ML/MIN Rate Random Glucose 93 MG/DL Calcium Level 8.6 MG/DL Magnesium Level 1.9 MG/DL Imaging Last Impressions Chest X-Ray 12/18/16 0600 Signed Impressions: Service Date/Time: Sunday, December 18, 2016 03:53 - CONCLUSION: No significant change has occurred. Stanford Hardy MD Objective Remarks GENERAL: 71-year-old female, currently resting in bed in no acute distress on nasal cannula SKIN: Warm and dry no rash HEAD: Atraumatic. Normocephalic. EYES: Pupils equal and round about 3 mm bilaterally and reactive. No scleral icterus. No injection or drainage. ENT: No nasal bleeding or discharge. Mucous membranes pink and moist. Oropharynx without erythema or exudates. NECK: Trachea midline. No JVD appreciated. CARDIOVASCULAR: IRR. Diastolic snap for mitral valve noted. Pansystolic murmur. Nondisplaced PMI. RESPIRATORY: Few crackles appreciated in the bases bilaterally. No and extremities. Symmetrical surgeon. GASTROINTESTINAL: Abdomen soft, non-tender, nondistended. Bowel sounds present. MUSCULOSKELETAL: Extremities with trace lower extremity edema NEUROLOGICAL: Awake and alert. No obvious cranial nerve deficits. Motor grossly within normal limits. Speech is within normal limits. Date of Insertion: Dec 13, 2016 Line: Central Venous Catheter Side: Right Location: Internal, Jugular A/P Assessment and Plan NEURO/PSYCH: Acetaminophen as needed for pain 1-3/fever Lortab as needed for pain 4-10 RESP: Acute respiratory deficiency Post influenza pneumonia Completed course of Tamiflu. Continue with oxygen keep sat >92% DuoNeb every 6 hours. Albuterol every 2 hours as needed. CV: Shock Atrial fibrillation with RVR Critical aortic stenosis (MG 51 PG 93) valve area 0.44 cm history of mechanical mitral valve replacement Pacemaker in place 2011 HTN Continue Coumadin keep INR 2.5-3.5. Mean of 3 with mitral valve. Currently 3.1 Monitor HR and BP keep MAP>65mmHg On digoxin 0.125 mg daily, Lopressor 25mg Q12, increase Cardizem 60mg QID Dig level 0.8 on 12/16 2-D echo shows 55-60% normal ejection fraction mild LVH and critical aortic stenosis Cardiology consult- Evaluated by CTS here. Signed off. Patient requesting transfer to [facility] when stable GI: On heart healthy diet Protonix for GI prophylaxis Colace/as needed Senokot for bowel regimen FEN/RENAL: Monitor renal function, I/O's, electrolytes replacement per protocol. ID: Postinfluenzal community acquired pneumonia Monitor for signs of infections ( Fever, WBC) Legionella and pneumococcal antigens neg azithromycin, vancomycin and cefepime all discontinued. Cultures negative. HEME: Chronic anticoagulation with warfarin for mechanical mitral valve and atrial fibrillation Leukocytosis Normocytic anemia Continue warfarin with pharmacy consult for dosing. Currently 2.5 mg Target INR 2.5-3.5. INR 3.1 today ENDO: Currently Euglycemic. Sliding scale insulin if clinically indicated PROPH: Protonix 40 mg po daily for stress ulcer prophylaxis. INR is therapeutic also provides DVT prophylaxis ACCESS: peripheral IV placed in ED. R IJ CVL placed 12/14 d/c central line Will sign off and transfer care to [facility] Level 3 Brock Soliz MD Dec 18, 2016 10:10
[2016-12-18] MEDS: DILTIAZEM HCL 60 MG TAB PO SCH ×3 (13:00→20:09)
[2016-12-19] VITALS (13 sets, daily range): BP systolic 111–142; BP diastolic 59–72; PULSE 60–99; RESP 16–24; TEMP 97.9–98.9; O2SAT 90–98
[2016-12-19] MEDS: CHLORHEXIDINE GLUCONATE 2 % 1 PACK (2 CLOTHS) TOP SCH ×2 (02:18→21:07)
[2016-12-19] MEDS: RESP: ALBUTEROL 2.5 MG/IPRATROPIUM 0.5 MG NEB (SCH) INH ×4 (03:26→21:42)
[2016-12-19 04:11] LABS: AUTOMATED NEUTROPHIL # 3.4 TH/MM3 (1.8-7.7); BASOPHIL % 0.5 % (0.0-2.0); EOSINOPHIL # 0.2 TH/MM3 (0-0.4); EOSINOPHIL % 3.3 % (0.0-4.0); HEMATOCRIT 33.1 % (35.0-46.0); HEMO FLAGS DIFF FINAL; LYMPH % 18.1 % (9.0-44.0); MEAN CELL VOLUME 92.7 FL (80.0-100.0); MEAN CORPUSCULAR HEMOGLOBIN 31.4 PG (27.0-34.0); MEAN CORPUSCULAR HGB CONC 33.9 % (32.0-36.0); MONO % 16.8 % (0.0-8.0); NEUT % 61.3 % (16.0-70.0); PLATELET COUNT 294 TH/MM3 (150-450); RED BLOOD COUNT 3.57 MIL/MM3 (4.00-5.30); RED CELL DISTRIBUTION WIDTH 13.9 % (11.6-17.2); WHITE BLOOD COUNT 5.6 TH/MM3 (4.0-11.0)
[2016-12-19 04:15] LABS: INTERNATIONAL NORMALIZED RATIO 2.6 RATIO; PROTHROMBIN TIME - PATIENT 29.8 SEC (9.8-11.6)
[2016-12-19 04:35] LABS: BICARBONATE 30.6 MEQ/L (21.0-32.0); MAGNESIUM 1.8 MG/DL (1.5-2.5); POTASSIUM 3.6 MEQ/L (3.5-5.1)
[2016-12-19] MEDS: DIGOXIN 0.125 MG TAB PO SCH (08:57)
[2016-12-19] MEDS: METOPROLOL TARTRATE 25 MG TAB PO SCH ×2 (08:57→20:58)
[2016-12-19] MEDS: SODIUM CHLORIDE 0.9% FLUSH 5 ML FLUSH IV FLUSH SCH ×2 (08:57→20:59)
[2016-12-19] MEDS: DILTIAZEM HCL 60 MG TAB PO SCH ×4 (08:57→20:58)
[2016-12-19] MEDS: PANTOPRAZOLE SOD 40 MG DELAYED RELEASE TAB PO SCH (08:57)
[2016-12-19] MEDS: DOCUSATE SODIUM 100 MG CAP PO SCH ×2 (08:57→20:58)
--- NOTE | 2016-12-19 15:09 | HHI.PR ---
Subjective Remarks Patient is a 71-year-old renal female with past medical history of mechanical valve replacement, paroxysmal A. fib on chronic Coumadin use, HTN who came into the hospital with shortness of breath, cough and fever. Patient diagnosed with A. fib with RVR in the 140s. He was started on Cardizem drip, and amiodarone. Patient was admitted to medical intensive care unit for closer monitoring. She was weaned off of the Cardizem drip, now on po cardizem and her other home meds. Transfer of care to hospitalist/medicine. Patient seen today. Out of bed to chair. States that she is doing well. Better than she was which came into the hospital. Requesting to be transferred to a regular floor. Patient states she was seen by grand scribe Dr. Wick, and that he spoke with for her to follow-up as an outpatient first and proceed with TAVR procedure in [facility]. Otherwise, denies pain and discomfort. Denies SOB/ dyspnea. Denies chest pain, palpitations, headaches, dizziness. Denies fevers, chills, n/v/d. Objective Vitals Vital Signs Date Time Temp Pulse Resp B/P Pulse Ox O2 Delivery O2 Flow Rate FiO2 12/19/16 14:00 65 12/19/16 12:00 98.9 60 21 111/59 97 12/19/16 12:00 60 12/19/16 10:00 88 12/19/16 09:28 97 Nasal Cannula 2.00 12/19/16 08:00 98.7 92 24 135/67 96 12/19/16 08:00 92 12/19/16 06:00 99 12/19/16 04:00 98.5 73 19 131/69 95 12/19/16 04:00 73 12/19/16 02:00 60 12/19/16 00:00 98.2 61 18 142/63 96 12/19/16 00:00 61 12/18/16 22:00 60 12/18/16 20:23 100 Nasal Cannula 2.00 12/18/16 20:00 98.7 106 18 117/69 97 12/18/16 20:00 106 I/O 12/18/16 12/18/16 12/18/16 12/19/16 12/19/16 12/19/16 07:00 15:00 23:00 07:00 15:00 23:00 Intake Total 90 ml 660 ml 120 ml 380 ml Output Total 250 ml 900 ml 260 ml 580 ml Balance -160 ml -240 ml -140 ml -200 ml Intake Oral 90 ml 600 ml 120 ml 380 ml IV Total 0 ml 60 ml 0 ml Output Urine Total 250 ml 900 ml 260 ml 580 ml # Voids 2 # Bowel Movements 0 1 1 Result Diagram: 12/19/16 0345 12/19/16 0345 Imaging Last Impressions Chest X-Ray 12/18/16 0600 Signed Impressions: Service Date/Time: Sunday, December 18, 2016 03:53 - CONCLUSION: No significant change has occurred. Stanford Hardy MD Objective Remarks GENERAL: This is a well-nourished, well-developed patient, in no apparent distress. HEENT: Normocephalic. Pupils equal round and reactive. Nose without bleeding. Airway patent. NECK: Trachea midline. No JVD. Supple. CARDIOVASCULAR: Irregular HR, clicks, no murmurs, gallops, or rubs. RESPIRATORY: Diminished bases. No wheezes, rales, or rhonchi. GASTROINTESTINAL: Abdomen soft, non-tender, nondistended. Bowel Sounds normoactive x4. MUSCULOSKELETAL: Extremities without clubbing, cyanosis, trace BLE edema. NEUROLOGICAL: Awake and alert. Oriented x 3. No focal neuro deficit. EMANUEL. Normal speech. Date of Insertion: Dec 13, 2016 Line: Central Venous Catheter Side: Right Location: Internal, Jugular A/P Problem List: (1) Atrial fibrillation with RVR ICD Code: I48.91 Status: Acute (2) Pulmonary edema ICD Code: J81.1 Status: Acute (3) Aortic stenosis ICD Code: I35.0 Status: Acute (4) Pneumonia ICD Code: J18.9 Status: Acute (5) Mitral valve replaced ICD Code: Z95.4 Status: Acute Assessment and Plan Patient is a 71-year-old renal female with past medical history of mechanical valve replacement, paroxysmal A. fib on chronic Coumadin use, HTN who came into the hospital with shortness of breath, cough and fever. Patient diagnosed with A. fib with RVR in the 140s. He was started on Cardizem drip, and amiodarone. Patient was admitted to medical intensive care unit for closer monitoring. She was weaned off of the Cardizem drip, now on po cardizem and her other home meds. Transfer of care to hospitalist/medicine. Afib RVR Paroxysmal Afib Mechanical Valve Replacement - EF 55-60%, JOSE 50 mmHg - Continue by mouth Cardizem, digoxin, metoprolol - Continue with Coumadin, monitor INR keep INR 3-3.5. Pneumonia, Community Acquired - Pleated IV antibiotic azithromycin, vancomycin, and aztreonam - Weaned off O2 - DuoNeb's when necessary HTN - Continue metoprolol Aortic Valve Stenosis - Follow up with grand scribe as an outpatient. To be evaluated for TAVR procedure. DVT prop on Coumadin Written by Davian Frederick, acting as scribe for Dr. Garnica on 12/19/16 at 15:12. All or portions of this note were transcribed by JOHN Oliver. I, Dr. Winston Garnica personally performed the history, physical exam, and medical decision making; and confirmed the accuracy of the information in the transcribed note. Authenticated by Dr. Winston Garnica on 12/19/16 at 22:32. Discharge Planning If patient does well overnight without any issues, plan to DC home tomorrow. F/ u with grand scribe. Problem Qualifiers (1) Pulmonary edema: Qualified Code: J81.0 - Acute pulmonary edema (2) Pneumonia: Qualified Code: J18.9 - Pneumonia due to infectious organism, unspecified laterality, unspecified part of lung Davian Leung Dec 19, 2016 15:09 Marylin Garnica DO Dec 19, 2016 22:33
[2016-12-19] MEDS ORDERED: WARFARIN SOD 1 MG TAB PO ONE (16:00)
[2016-12-19] MEDS: WARFARIN SOD 3 MG TAB PO SCH (16:22)
[2016-12-20] VITALS (9 sets, daily range): BP systolic 55–125; BP diastolic 55–71; PULSE 60–91; RESP 16–20; TEMP 97.5–98.4; O2SAT 90–97
[2016-12-20] MEDS: RESP: ALBUTEROL 2.5 MG/IPRATROPIUM 0.5 MG NEB (SCH) INH ×4 (04:22→20:53)
[2016-12-20 08:21] LABS: INTERNATIONAL NORMALIZED RATIO 1.9 RATIO
[2016-12-20] MEDS: DOCUSATE SODIUM 100 MG CAP PO SCH ×2 (09:00→21:00)
[2016-12-20] MEDS: DIGOXIN 0.125 MG TAB PO SCH (09:04)
[2016-12-20] MEDS: DILTIAZEM HCL 60 MG TAB PO SCH ×4 (09:04→21:47)
[2016-12-20] MEDS: PANTOPRAZOLE SOD 40 MG DELAYED RELEASE TAB PO SCH (09:05)
[2016-12-20] MEDS: METOPROLOL TARTRATE 25 MG TAB PO SCH ×2 (09:05→21:47)
[2016-12-20] MEDS: SODIUM CHLORIDE 0.9% FLUSH 5 ML FLUSH IV FLUSH SCH ×2 (09:05→21:49)
--- NOTE | 2016-12-20 13:31 | HHI.PR ---
Subjective Remarks Follow-up visit A. fib with RVR, pneumonia, mechanical valve on Coumadin. Patient seen today. Sitting up in chair. Reports she's been walking around in her room towards the bathroom. States she is doing better. No acute issues overnight. Heart rate controlled on Cardizem by mouth. Denies pain and discomfort. Denies SOB/ dyspnea. Denies chest pain, palpitations, headaches, dizziness. Denies fevers, chills, n/v/d. Objective Vitals Vital Signs Date Time Temp Pulse Resp B/P Pulse Ox O2 Delivery O2 Flow Rate FiO2 12/20/16 04:23 91 21 12/20/16 04:00 98.2 74 16 115/71 92 12/20/16 00:00 98.3 70 16 103/57 91 12/19/16 21:43 90 21 12/19/16 20:00 97.9 75 16 140/72 93 12/19/16 20:00 88 12/19/16 17:10 98.8 74 16 121/64 91 12/19/16 16:00 65 12/19/16 16:00 98.6 68 24 117/60 98 12/19/16 14:00 98.6 68 24 117/60 98 12/19/16 14:00 65 I/O 12/19/16 12/19/16 12/19/16 12/20/16 12/20/16 12/20/16 07:00 15:00 23:00 07:00 15:00 23:00 Intake Total 120 ml 380 ml 480 ml 0 ml Output Total 260 ml 580 ml Balance -140 ml -200 ml 480 ml 0 ml Intake Oral 120 ml 380 ml 480 ml IV Total 0 ml 0 ml 0 ml Output Urine Total 260 ml 580 ml # Voids 1 1 # Bowel Movements 1 0 0 Result Diagram: 12/19/16 0345 12/19/16 0345 Imaging Last Impressions Chest X-Ray 12/18/16 0600 Signed Impressions: Service Date/Time: Sunday, December 18, 2016 03:53 - CONCLUSION: No significant change has occurred. Stanford Hardy MD Objective Remarks GENERAL: This is a well-nourished, well-developed patient, in no apparent distress. HEENT: Normocephalic. Pupils equal round and reactive. Nose without bleeding. Airway patent. NECK: Trachea midline. No JVD. Supple. CARDIOVASCULAR: Irregular HR, clicks, no murmurs, gallops, or rubs. RESPIRATORY: Diminished bases. No wheezes, rales, or rhonchi. GASTROINTESTINAL: Abdomen soft, non-tender, nondistended. Bowel Sounds normoactive x4. MUSCULOSKELETAL: Extremities without clubbing, cyanosis, trace BLE edema. NEUROLOGICAL: Awake and alert. Oriented x 3. No focal neuro deficit. EMANUEL. Normal speech. Date of Insertion: Dec 13, 2016 Line: Central Venous Catheter Side: Right Location: Internal, Jugular A/P Problem List: (1) Atrial fibrillation with RVR ICD Code: I48.91 Status: Acute (2) Pulmonary edema ICD Code: J81.1 Status: Acute (3) Aortic stenosis ICD Code: I35.0 Status: Acute (4) Pneumonia ICD Code: J18.9 Status: Acute (5) Mitral valve replaced ICD Code: Z95.4 Status: Acute Assessment and Plan Patient is a 71-year-old renal female with past medical history of mechanical valve replacement, paroxysmal A. fib on chronic Coumadin use, HTN who came into the hospital with shortness of breath, cough and fever. Patient diagnosed with A. fib with RVR in the 140s. He was started on Cardizem drip, and amiodarone. Patient was admitted to medical intensive care unit for closer monitoring. She was weaned off of the Cardizem drip, now on po cardizem and her other home meds. Transfer of care to hospitalist/medicine. Afib RVR Paroxysmal Afib Mechanical Valve Replacement - EF 55-60%, JOSE 50 mmHg - Continue by mouth Cardizem, digoxin, metoprolol - Continue with Coumadin, monitor INR keep INR 3-3.5. - Recent INR 1.9. Increased dose of Coumadin for tonight. Repeat INR tomorrow. If INR is within range plan to DC patient. Pneumonia, Community Acquired - Pleated IV antibiotic azithromycin, vancomycin, and aztreonam - Weaned off O2 - DuoNeb's when necessary HTN - Continue metoprolol Aortic Valve Stenosis - Follow up with boiler operator helper as an outpatient. To be evaluated for TAVR procedure. DVT prop on Coumadin Written by Davian Frederick, acting as scribe for Dr. Garnica on 12/20/16 at 13:31. All or portions of this note were transcribed by JOHN Oliver. I, Dr. Winston Garnica personally performed the history, physical exam, and medical decision making; and confirmed the accuracy of the information in the transcribed note. Authenticated by Dr. Winston Garnica on 12/21/16 at 00:12. Discharge Planning Plan to DC home tomorrow if INR is within range. F/u with boiler operator helper. Problem Qualifiers (1) Pulmonary edema: Qualified Code: J81.0 - Acute pulmonary edema (2) Pneumonia: Qualified Code: J18.9 - Pneumonia due to infectious organism, unspecified laterality, unspecified part of lung Davian Leung Dec 20, 2016 13:31 Marylin Garnica DO Dec 21, 2016 00:12
[2016-12-20] MEDS ORDERED: WARFARIN SOD 2 MG TAB PO SCH (16:00)
[2016-12-20] MEDS: WARFARIN SOD 3 MG TAB PO SCH (16:06)
[2016-12-21] MEDS: RESP: ALBUTEROL 2.5 MG/IPRATROPIUM 0.5 MG NEB (SCH) INH (03:35)
[2016-12-21] MEDS: CHLORHEXIDINE GLUCONATE 2 % 1 PACK (2 CLOTHS) TOP SCH (03:53)
[2016-12-21 04:30] VITALS: BP 114/61; PULSE 75; RESP 16; TEMP 98.4; O2SAT 94
[2016-12-21 07:39] LABS: INTERNATIONAL NORMALIZED RATIO 2.3 RATIO; PROTHROMBIN TIME - PATIENT 26.9 SEC (9.8-11.6)
[2016-12-21 08:00] VITALS: BP 147/76; PULSE 60; RESP 18; TEMP 98.6; O2SAT 96
[2016-12-21] MEDS: PANTOPRAZOLE SOD 40 MG DELAYED RELEASE TAB PO SCH (08:10)
[2016-12-21] MEDS: DILTIAZEM HCL 60 MG TAB PO SCH ×3 (08:10→16:55)
[2016-12-21] MEDS: DOCUSATE SODIUM 100 MG CAP PO SCH (08:10)
[2016-12-21] MEDS: METOPROLOL TARTRATE 25 MG TAB PO SCH (08:10)
[2016-12-21] MEDS: DIGOXIN 0.125 MG TAB PO SCH (08:10)
[2016-12-21] MEDS: SODIUM CHLORIDE 0.9% FLUSH 5 ML FLUSH IV FLUSH SCH (08:10)
[2016-12-21 12:00] VITALS: BP 110/67; PULSE 77; RESP 18; TEMP 98; O2SAT 97
[2016-12-21] MEDS ORDERED: DILT60TA33 PO (15:51)
[2016-12-21] MEDS ORDERED: BENZ100 PO (15:51)
--- NOTE | 2016-12-21 15:58 | HHI.DS ---
Discharge Summary Admission Date Dec 13, 2016 at 6:48 pm Discharge Date: Dec 21, 2016 Admitting Diagnosis Hypoxic Respiratory Failure, Sepsis, PNA, Afib RVR (1) Atrial fibrillation with RVR ICD Code: I48.91 Diagnosis: Principal (2) Pulmonary edema ICD Code: J81.1 Diagnosis: Principal (3) Aortic stenosis ICD Code: I35.0 Diagnosis: Principal (4) Pneumonia ICD Code: J18.9 Diagnosis: Principal (5) Mitral valve replaced ICD Code: Z95.4 Procedures None. Brief History - From Admission 71-year-old [place] female with past medical history of mechanical mitral valve replacement, paroxysmal atrial fibrillation on chronic anticoagulation with warfarin, hypertension, who presents to [facility] with shortness of breath, cough and fever. She states that on Sunday12/08/16 she developed cough and sore throat and was seen by her primary care physician and started on Tamiflu for presumed influenza. She had been around a grandchild who had tested positive for influenza and had been ill with similar symptoms. She states that she initially felt some improvement after taking Tamiflu, however over the last 24 hours she states that she has felt short of breath and has had cough productive of white and blood-tinged sputum. She states her fever had resolved for a few days but upon presentation she has a temp of 101.1. She has completed a 5 day course of Tamiflu. She presented in atrial fibrillation with RVR with rate in the 140s. She was administered Cardizem 13 mg bolus followed by 20 mg IV bolus and is going to be started on a Cardizem drip per ED physician. She remains in A. fib in the 110s. She is on metoprolol and digitoxin for rate control at home. She took her digoxin and metoprolol this morning. She has not had her evening dose of metoprolol. She has not taken HCTZ for couple of days because she had run out. Digoxin level is pending. White blood cell count is 11. Chest x-ray demonstrates small bibasilar infiltrates and right pleural effusion. She was started on aztreonam and vancomycin in the emergency department. She denies chest pain. She has some mild pedal edema but she states this is chronic for her. Her INR is 3.1. CBC/BMP: 12/19/16 0345 12/19/16 0345 Significant Findings Laboratory Tests Test 12/19/16 12/20/16 12/21/16 03:45 06:35 06:25 Red Blood Count 3.57 MIL/MM3 (4.00-5.30) Hemoglobin 11.2 GM/DL (11.6-15.3) Hematocrit 33.1 % (35.0-46.0) Monocytes (%) (Auto) 16.8 % (0.0-8.0) Prothrombin Time 29.8 SEC 22.0 SEC 26.9 SEC (9.8-11.6) (9.8-11.6) (9.8-11.6) Creatinine 0.43 MG/DL (0.50-1.00) Imaging Last Impressions Chest X-Ray 12/18/16 0600 Signed Impressions: Service Date/Time: Sunday, December 18, 2016 03:53 - CONCLUSION: No significant change has occurred. Stanford Hardy MD PE at Discharge GENERAL: This is a well-nourished, well-developed patient, in no apparent distress. HEENT: Normocephalic. Pupils equal round and reactive. Nose without bleeding. Airway patent. NECK: Trachea midline. No JVD. Supple. CARDIOVASCULAR: Irregular HR, clicks, no murmurs, gallops, or rubs. RESPIRATORY: Diminished bases. No wheezes, rales, or rhonchi. GASTROINTESTINAL: Abdomen soft, non-tender, nondistended. Bowel Sounds normoactive x4. MUSCULOSKELETAL: Extremities without clubbing, cyanosis, trace BLE edema. NEUROLOGICAL: Awake and alert. Oriented x 3. No focal neuro deficit. EMANUEL. Normal speech. Pt update on day of discharge Ms. Lundberg is doing well. No acute concerns. She wants to go home. Her INR is 2.3 today. She will receive 5 mg of Warfarin this afternoon and re-check her INR at her doctor's office tomorrow morning. No CP, SOB, fever, chills. She continues to have dry cough. Hospital Course Patient is a 71-year-old renal female with past medical history of mechanical valve replacement, paroxysmal A. fib on chronic Coumadin use, HTN who came into the hospital with shortness of breath, cough and fever. Patient diagnosed with A. fib with RVR in the 140s. He was started on Cardizem drip, and amiodarone. Patient was admitted to medical intensive care unit for closer monitoring. She was weaned off of the Cardizem drip, now on po cardizem and her other home meds. Transfer of care to hospitalist/medicine. Afib RVR Paroxysmal Afib Mechanical Valve Replacement - EF 55-60%, JOSE 50 mmHg - Continue by mouth Cardizem, digoxin, metoprolol - Continue with Coumadin, monitor INR keep INR 3-3.5. - Recent INR 2.3 on 12/21/2016. Patient will receive 5 mg of Warfarin today and then we will discharge patient home. - Discussed with patient regarding INR check tomorrow morning. She will follow up with Dr. Wick's office. Pneumonia, Community Acquired - Pleated IV antibiotic azithromycin, vancomycin, and aztreonam - Weaned off O2 - DuoNeb's when necessary HTN - Continue metoprolol Aortic Valve Stenosis - Follow up with aboriginal liaison officer as an outpatient. To be evaluated for TAVR procedure. Full code. Coumadin Pt Condition on Discharge: Good Discharge Disposition: Discharge Home Discharge Time: > 30 minutes Discharge Instructions DIET: Follow Instructions for: Heart Healthy Diet Activities you can perform: Regular-No Restrictions Follow up Referrals: Cardiology - 3-5 Days PCP Follow-up - 1 Week New Medications: Benzonatate (Tessalon Perles) 100 Mg Cap 100 MG PO TID PRN COUGH #30 Ref 0 CAP Diltiazem (Cardizem) 60 Mg Tab 60 MG PO QID Afib #120 TAB Continued Medications: Digoxin (Digoxin) 0.125 Mg Tab 0.125 MG PO DAILY Regulate Heart Beat #30 Ref 0 TAB Hydrochlorothiazide (Hydrochlorothiazide) 12.5 Mg Tab 12.5 MG PO DAILY #30 Ref 0 TAB Metoprolol Tartrate (Metoprolol Tartrate) 25 Mg Tab 25 MG PO BID #60 Ref 0 TAB Warfarin (Warfarin) 2 Mg Tab 2 MG PO SuTuWeThSa @HS Blood Clot Prevention #30 Ref 0 TAB Warfarin (Warfarin) 4 Mg Tab 4 MG PO MoFr @ HS Blood Clot Prevention #30 Ref 0 TAB Discontinued Medications: Oseltamivir (Tamiflu) 75 Mg Cap 75 MG PO BID Mgmt Viral Infection Ref 0 CAP Marylin Garnica DO Dec 21, 2016 15:58
[2016-12-21] MEDS ORDERED: WARFARIN SOD 2 MG TAB PO SCH (16:00)
[2016-12-21] MEDS: WARFARIN SOD 3 MG TAB PO SCH (16:36)
[2016-12-21 16:54] VITALS: BP 97/53; PULSE 60; RESP 18; TEMP 98
== END 2016-12-21 18:34 | disposition home or self-care (01) | DRG 193 ==
LOC: NEPC 17:16 → NEDA 18:48 → HIMN 12-14 01:55 → N04B 12-19 17:10
PROVIDERS: ADMIT Hospitalist; ATTEND Hospitalist
PROC: 05HM33Z Insertion of Infusion Device into Right Internal Jugular Vein, Percutaneous Approach (ICD-10-PCS; principal; 2016-12-13)
DX: J18.9 Pneumonia, unspecified organism (principal); J81.0 Acute pulmonary edema; I50.9 Heart failure, unspecified; I48.0 Paroxysmal atrial fibrillation; I07.1 Rheumatic tricuspid insufficiency; E83.39 Other disorders of phosphorus metabolism; Z95.2 Presence of prosthetic heart valve; D64.9 Anemia, unspecified; I10 Essential (primary) hypertension; I09.9 Rheumatic heart disease, unspecified; R00.0 Tachycardia, unspecified; Z79.01 Long term (current) use of anticoagulants; E78.00 Pure hypercholesterolemia, unspecified; Z95.0 Presence of cardiac pacemaker; Z88.0 Allergy status to penicillin; R09.02 Hypoxemia
CPT/HCPCS: 36600; 71010; 80048; 80053; 80162; 80202; 81001; 82550; 82805; 83605; 83690; 83735; 83880; 84100; 84132; 84443; 84484; 85007; 85025; 85027; 85610; 85730; 87040; 87077; 87086; 87186; 87449; 87641; 87804; 93005; 93306; 94640; 94664; 96374; 96375; C9113; J0282; J0456; J1940; J2405; J3370; J3475; J7050